=== PATIENT | male | born 1955 | race Caucasian/White ===

== ENCOUNTER 2023-03-19 06:20 | Outpatient (OUT) | payer MEDICARE, OTHER, SELFPAY ==
[2023-03-19 06:43] LABS: Basophils Absolute Auto 0.1 10^3/uL (0.0-0.1); Eosinophils Absolute Auto 0.1 10^3/uL (0.0-0.7); Hemoglobin 14.4 g/dL (14.0-18.0); Immature Granulocytes Abs Auto 0.04 10^3/uL (0.00-0.03); Immature Granulocytes Pct Auto 0.4 % (0.0-0.5); Lymphocytes Absolute Auto 3.3 10^3/uL (1.2-3.8); Lymphocytes Percent Auto 32.2 % (20.5-60.0); Mean Corpuscular HGB Conc 35.1 g/dL (29.9-35.2); Mean Corpuscular Hemoglobin 31.2 pg (25.9-34.0); Mean Corpuscular Volume 88.7 fL (80.0-94.0); Mean Platelet Volume 8.4 fL (9.5-13.5); Monocytes Absolute Auto 0.9 10^3/uL (0.3-0.8); Monocytes Percent Auto 8.7 % (1.7-12.0); Neutrophils Absolute Auto 5.7 10^3/uL (1.4-6.5); Neutrophils Percent Auto 56.7 % (43.0-75.0); Platelet Count 424 10^3/uL (150-450); Red Blood Count 4.62 10^6/uL (4.70-6.10); Red Cell Distribution Width 12.9 % (11.0-15.0); White Blood Count 10.1 10^3/uL (4.0-11.0)
[2023-03-19 07:58] LABS: Prostate Specific Antigen Scrn 1.32 ng/mL (<=4.00)
== END 2023-03-19 06:21 ==
LOC: LAB 06:26
PROVIDERS: PCP Internal Medicine; Visit Provider Internal Medicine
DX: Z79.899 Other long term (current) drug therapy (principal); Z12.5 Encounter for screening for malignant neoplasm of prostate
CPT/HCPCS: 36415; 85025; G0103

== ENCOUNTER 2023-04-01 15:42 | Outpatient (OUT) | payer MEDICARE, OTHER, SELFPAY ==
--- NOTE | 2023-04-01 | XR_ITS ---
[facility] [place] [id number] Patient Name: DANAE CRABTREE MRN: [id number] date: 1955 Sex: M Assigned Patient Location: [facility] Current Patient Location: [facility] Accession/Order Number: [id number] Exam Date: 04/01/2023 15:55 Report Date: 04/01/2023 22:52 At the request of: KEKE BUSTILLO Procedure: XR lumbar spine 6V w bending EXAM: XR lumbar spine 6V w bending HISTORY: Low Back Pain COMPARISON: None. TECHNIQUE: 6 views FINDINGS: Maintenance of the normal lumbar lordosis. Multilevel intervertebral disc space narrowing, endplate and facet arthrosis. Vertebral body heights and alignments exhibit no fracture or listhesis. Flexion and extension imaging exhibits no instability or listhesis. The sacroiliac joints are unremarkable for patient's age. Moderate to severe of the aorta IMPRESSION: Lumbar spondylosis and degenerative disc disease with no visualized acute osseous abnormality. Atherosclerosis Electronically authenticated by: NORM PEÑA Date: 04/01/2023 22:52
== END 2023-04-01 15:43 | disposition home or self-care (01) ==
LOC: RAD 15:45
PROVIDERS: PCP Internal Medicine; Visit Provider Internal Medicine
DX: M47.816 Spondylosis without myelopathy or radiculopathy, lumbar region (principal); M51.36 Other intervertebral disc degeneration, lumbar region; M54.50 Low back pain, unspecified
CPT/HCPCS: 72114

== ENCOUNTER 2023-04-21 07:06 | Outpatient (OUT) | payer MEDICARE, OTHER, SELFPAY ==
[2023-04-21 07:22] LABS: Estimated GFR (African America >60 (>=60); Estimated GFR (Non-African Ame >60 (>=60)
--- NOTE | 2023-04-21 08:16 | CA_ITS ---
[facility] Test Date: 2023-04-21 Pat Name: Alok Osorio Department: Room: - Gender: Male Junior Php Developer: Polina Romero : 1955 Requested By: KEKE BUSTILLO Order Number: [id number] Reading MD: KEKE UBSTILLO Interpretive Statements Biphasis doppler waveforms PVR waveforms with normal upstroke, amplitude and dicrotic notch Right: - no significant pressure gradient between cuffs - normal POLINA, TBI Left: - significant pressure gradient between the calf and DP cuff - abnormal POLINA - normal TBI Impression: - normal arterial evaluation of the right lower extremity without hemodynamic impairment of the right lower extremity at rest (right POLINA 1.21) - significant left outflow (tibioperoneal) arterial disease with mild hemodynamic impairment of the left lower extremity at rest (left POLINA 0.94) Electronically Signed On 04-22-2023 7:13:56 EDT by KEKE BUSTILLO
--- NOTE | 2023-04-21 08:45 | CT_ITS ---
[address] [address] Patient Name: DANAE CRABTREE MRN: [id number] date: 1955 Sex: M Assigned Patient Location: LAB Current Patient Location: LAB Accession/Order Number: [id number] Exam Date: 04/21/2023 08:35 Report Date: 04/21/2023 15:44 At the request of: KEKE BUSTILLO Procedure: CT angio abdomen pelvis EXAM: CT angio abdomen pelvis HISTORY: Aortic Atherosclerosis I70.0 COMPARISON: None. TECHNIQUE: Axial CT imaging was performed with contrast through the abdomen, and pelvis, utilizing CTA protocol. Multiplanar reformats were performed. Dose reduction techniques were achieved by using automated exposure control and/or adjustment of mA and/or kV according to patient size and/or use of iterative reconstruction technique. FINDINGS: Lung bases: Lung bases are clear. No pleural effusion. GI upper: Unremarkable. Liver: Hepatic steatosis. Normal size and contour. Gallbladder: No significant abnormality. No cholelithiasis. Biliary system: No intra or extrahepatic biliary ductal dilatation. Spleen: Normal size. Pancreas: Unremarkable. Adrenal glands: Normal adrenal glands. Kidneys/ureters: Normal contours. No hydronephrosis. No nephrolithiasis or ureterolithiasis. There are multiple bilateral renal cysts measuring up to 2.4 cm on the right and 1.8 cm on the left. Lymph Nodes: No lymphadenopathy. Small bowel: No wall thickening or dilatation. Colon: No wall thickening or dilatation. Constipation. Appendix: Appendix is identified with normal appearance. Peritoneal cavity: No free fluid or pneumoperitoneum. Lower : Prostatomegaly with coarse calcification. Correlation with PSA is recommended. Bones: No acute bony abnormality. Soft tissues: No acute finding. Additional findings: None. VASCULAR FINDINGS: CTA ABDOMEN PELVIS: Aorta: Moderate atherosclerotic disease without significant stenosis. No aneurysm or dissection. Right renal artery: No evidence of aneurysm, dissection, or occlusion. No significant stenosis. Left renal artery: No evidence of aneurysm, dissection, or occlusion. No significant stenosis. Celiac artery: No evidence of aneurysm, dissection, or occlusion. No significant stenosis. Superior mesenteric artery: No evidence of aneurysm, dissection, or occlusion. No significant stenosis. Inferior mesenteric artery: No evidence of aneurysm, dissection, or occlusion. No significant stenosis. PELVIC ARTERIES: Right: Common iliac artery: No evidence of aneurysm, dissection, or occlusion. No significant stenosis. External iliac artery: No evidence of aneurysm, dissection, or occlusion. No significant stenosis. Internal iliac artery: No evidence of aneurysm, dissection, or occlusion. No significant stenosis. Left: Common iliac artery: No evidence of aneurysm, dissection, or occlusion. No significant stenosis. Common external artery: No evidence of aneurysm, dissection, or occlusion. No significant stenosis. Internal iliac artery: No evidence of aneurysm, dissection, or occlusion. No significant stenosis. CT/CT angio abdomen pelvis IMPRESSION: 1. Moderate atherosclerotic disease without significant stenosis. No aneurysm or dissection. 2. No acute abnormality. Hepatic steatosis. Electronically authenticated by: DAMEON BRADEN Date: 04/21/2023 15:44
== END 2023-04-21 07:07 | disposition home or self-care (01) ==
LOC: LAB 07:06
PROVIDERS: PCP Internal Medicine; Visit Provider Internal Medicine
DX: I70.0 Atherosclerosis of aorta (principal); I70.213 Atherosclerosis of native arteries of extremities with intermittent claudication, bilateral legs; F17.210 Nicotine dependence, cigarettes, uncomplicated
CPT/HCPCS: 36415; 74174; 82565; 93923; Q9967

== ENCOUNTER 2023-05-13 09:42 | Outpatient (OUT) | payer MEDICARE, OTHER, SELFPAY ==
--- NOTE | 2023-05-13 09:45 | CT_ITS ---
[address] [address] Patient Name: DANAE CRABTREE MRN: [id number] date: 1955 Sex: M Assigned Patient Location: CT Current Patient Location: Accession/Order Number: [id number] Exam Date: 05/13/2023 09:56 Report Date: 05/14/2023 10:46 At the request of: KEKE BUSTILLO Procedure: CT lung screening low-dose EXAMINATION: CT lung screening low-dose HISTORY: Nicotine dependence F17.210 COMPARISON: CT chest 04/03/2022 TECHNIQUE: Axial, Coronal, and Sagittal images were created without the administration of IV contrast material. Dose reduction techniques were achieved by using automated exposure control and/or adjustment of mA and/or kV according to patient size and/or use of iterative reconstruction technique. FINDINGS: LUNGS: No visible pulmonary disease. PLEURA: No mass, effusion, or pneumothorax. VASCULATURE: No abnormality. WALESKA: No mass or pathologic adenopathy. MEDIASTINUM: No mass or pathologic adenopathy. CARDIAC: No enlargement, pericardial thickening, or significant calcification. AORTA: No aneurysm or dissection. CHEST WALL: No mass or axillary adenopathy BONES: No bone lesion or fracture. LIMITED ABDOMEN: No suspicious findings. Limited images of the upper abdomen. OTHER: Negative. CT/CT lung screening low-dose IMPRESSION: 1. Lung-RADS Category 1 Negative. No nodules and definitely benign nodules. Continue annual screening with LDCT in 12 months. Electronically authenticated by: AUTUMN EGAN Date: 05/14/2023 10:46
== END 2023-05-13 09:43 | disposition home or self-care (01) ==
LOC: CT 09:42
PROVIDERS: PCP Internal Medicine; Visit Provider Internal Medicine
DX: F17.210 Nicotine dependence, cigarettes, uncomplicated (principal)
CPT/HCPCS: 71271

== ENCOUNTER 2023-10-11 06:31 | Outpatient (OUT) | payer MEDICARE, OTHER, SELFPAY ==
[2023-10-11 07:02] LABS: Basophils Absolute Auto 0.1 10^3/uL (0.0-0.1); Basophils Percent Auto 0.9 % (0.2-2.0); Eosinophils Absolute Auto 0.1 10^3/uL (0.0-0.7); Eosinophils Percent Auto 1.3 % (0.9-7.0); Hematocrit 42.7 % (42.0-54.0); Hemoglobin 14.3 g/dL (14.0-18.0); Immature Granulocytes Abs Auto 0.03 10^3/uL (0.00-0.03); Immature Granulocytes Pct Auto 0.3 % (0.0-0.5); Lymphocytes Absolute Auto 3.9 10^3/uL (1.2-3.8); Lymphocytes Percent Auto 38.9 % (20.5-60.0); Mean Corpuscular HGB Conc 33.5 g/dL (29.9-35.2); Mean Corpuscular Hemoglobin 31.6 pg (25.9-34.0); Mean Corpuscular Volume 94.5 fL (80.0-94.0); Mean Platelet Volume 8.6 fL (9.5-13.5); Monocytes Absolute Auto 0.9 10^3/uL (0.3-0.8); Neutrophils Percent Auto 49.6 % (43.0-75.0); Platelet Count 424 10^3/uL (150-450); Red Blood Count 4.52 10^6/uL (4.70-6.10); Red Cell Distribution Width 12.9 % (11.0-15.0)
[2023-10-11 07:33] LABS: Alanine Aminotransferase 30 U/L (16-63); Anion Gap 10.9; BUN Creatinine Ratio 13.5; Calcium 8.9 mg/dL (8.5-10.1); Carbon Dioxide 27.1 mmol/L (21.0-32.0); Chloride 101 mmol/L (98-107); Chol HDL Ratio 4.6; Cholesterol 196 mg/dL (<=200); Estimated GFR (African America >60 (>=60); Estimated GFR (Non-African Ame >60 (>=60); Glucose 100 mg/dL (74-106); HDL Cholesterol 43 mg/dL (40-60); Sodium 135 mmol/L (136-145); Triglycerides 184 mg/dL (<=150); VLDL CHOLESTEROL 36.8 mg/dL
[2023-10-11 08:28] LABS: Prostate Specific Antigen Scrn 0.71 ng/mL (<=4.00)
== END 2023-10-11 06:32 | disposition home or self-care (01) ==
LOC: LAB 06:31
PROVIDERS: PCP Internal Medicine; Visit Provider Internal Medicine
DX: E78.00 Pure hypercholesterolemia, unspecified (principal); I10 Essential (primary) hypertension; Z12.5 Encounter for screening for malignant neoplasm of prostate; Z79.899 Other long term (current) drug therapy; D72.829 Elevated white blood cell count, unspecified
CPT/HCPCS: 36415; 80048; 80061; 84460; 85025; G0103

== ENCOUNTER 2024-05-28 09:56 | Outpatient (OUT) | payer MEDICARE, OTHER, SELFPAY ==
--- NOTE | 2024-05-28 10:06 | CT_ITS ---
[address] [address] Patient Name: DANAE CRABTREE MRN: [id number] date: 1955 Sex: M Assigned Patient Location: CT Current Patient Location: CT Accession/Order Number: [id number] Exam Date: 05/28/2024 10:24 Report Date: 05/28/2024 14:55 At the request of: KEKE BUSTILLO Procedure: CT lung screening low-dose EXAMINATION: CT lung screening low-dose HISTORY: Nicotine Dependence Cigarette F17.210 COMPARISON: No relevant comparison available. TECHNIQUE: Axial, Coronal, and Sagittal images were created without the administration of IV contrast material. Dose reduction techniques were achieved by using automated exposure control and/or adjustment of mA and/or kV according to patient size and/or use of iterative reconstruction technique. FINDINGS: LUNGS: Soft tissue attenuation in the trachea likely retained mucus. Mild centrilobular emphysema with an upper lobe predominance. Few scattered punctate pulmonary nodules are noted, the largest measuring 3 x 1 mm along the right major fissure axial image #82, nonspecific. No significant pulmonary nodule or mass PLEURA: No mass, effusion, or pneumothorax. VASCULATURE: No abnormality. WALESKA: No mass or pathologic adenopathy. MEDIASTINUM: No mass or pathologic adenopathy. CARDIAC: No enlargement or pericardial effusion CORONARY ARTERIES: Coronary calcifications are mild. AORTA: Mild calcific atherosclerosis. No aneurysm CHEST WALL: No mass or axillary adenopathy BONES: No bone lesion or fracture. LIMITED ABDOMEN: No suspicious findings. Limited images of the upper abdomen. OTHER: Negative. CT/CT lung screening low-dose IMPRESSION: LUNG SCREENING: Lung-RADS Category 2- Benign Appearance or Behavior. Nodules with a very low likelihood of becoming a clinically active cancer due to size or lack of growth. 2. Continue annual screening with LDCT in 12 months. Electronically authenticated by: NORM QUIGLEY Date: 05/28/2024 14:55
== END 2024-05-28 09:57 | disposition home or self-care (01) ==
LOC: CT 09:56
PROVIDERS: PCP Internal Medicine; Visit Provider Internal Medicine
DX: F17.210 Nicotine dependence, cigarettes, uncomplicated (principal)
CPT/HCPCS: 71271

== ENCOUNTER 2024-06-02 09:38 | Outpatient (OUT) | payer MEDICARE, OTHER, SELFPAY ==
--- NOTE | 2024-06-02 09:44 | XR_ITS ---
The [address] [address] Patient Name: DANAE CRABTREE MRN: [id number] date: 1955 Sex: M Assigned Patient Location: RAD Current Patient Location: RAD Accession/Order Number: [id number] Exam Date: 06/02/2024 09:49 Report Date: 06/02/2024 11:08 At the request of: KEKE BUSTILLO Procedure: XR finger RT min 2V PROCEDURE: XR finger RT min 2V HISTORY: Pain Of Right Middle Finger M79.644 COMPARISON: None. FINDINGS: BONES:Small separate corticated ossification along margin of proximal interphalangeal joint of the third digit favoring sequela of remote injury. Mild joint space narrowing of the third metacarpophalangeal joint. SOFT TISSUES:No visible soft tissue swelling. EFFUSION:None visible. OTHER: Negative. XR/XR finger RT min 2V IMPRESSION: 1. Mild degenerative changes of the third digit and sequela of remote injury. No acute bone abnormality. Electronically authenticated by: AUTUMN EGAN Date: 06/02/2024 11:08
--- OUTSIDE RECORDS SUMMARY | 2024-06-02 09:58 | XMS_ITS | CCD ---
Author Organization [facility] Care Team Providers Care Rake Operator Name Role Phone Teddy Peoples Unavailable OSMAR, DR GAINES Consulting Unavailable OSMAR, DR GAINES Primary Care Unavailable OSMAR, DR GAINES Attending Unavailable OSMAR, DR GAINES Admitting Unavailable Trever, DR Park Consulting Unavailable BOOGIE, SERENA Consulting Unavailable OSMAR, DR GAINES Primary Care Unavailable OSMAR, DR GAINES Attending Unavailable OSMAR, DR GAINES Admitting Unavailable GERMAN, KIRILL SANTIAGO Consulting Unavailable PAY, DR KHAN Attending Unavailable PAY, DR KHAN Admitting Unavailable OSMAR, DR GAINES Primary Care Unavailable DUKES, OMID Consulting Unavailable STRATTON, ESTER Consulting Unavailable OBINNA, DR DILMA Aguilar Consulting Unavailable OSMAR, DR GAINES Primary Care Unavailable OBINNA, DR DILMA Aguilar Attending Unavailable YEBOAH, DR DILMA Aguilar Admitting Unavailable NGO, [facility] Consulting Unavailable OSMAR, DR GAINES Primary Care Unavailable OBINNA, DR DILMA Aguilar Attending Unavailable OBINNA, DR DILMA Augilar Admitting Unavailable OBINNA, DR DILMA Aguilar Consulting Unavailable OSMAR, DR GAINES Primary Care Unavailable OBINNA, DR DILMA Aguilar Attending Unavailable YEBOAH, DR DILMA Aguilar Admitting Unavailable OBINNA, DR DILMA Aguilar Consulting Unavailable OSMAR, DR GAINES Primary Care Unavailable OBINNA, DR DILMA Aguilar Attending Unavailable OBINNA, DR DILMA Aguilar Admitting Unavailable OBINNA, DR DILMA Aguilar Consulting Unavailable OSMAR, DR GAINES Primary Care Unavailable YEBOAH, DR DILMA Aguilar Attending Unavailable YEBOAH, DR DILMA Aguilar Admitting Unavailable NGO, [facility] Consulting Unavailable OSMAR, DR GAINES Consulting Unavailable OSMAR, DR GAINES Primary Care Unavailable OSMAR, DR GAINES Attending Unavailable OSMAR, DR GAINES Admitting Unavailable OSMAR, DR GAINES Consulting Unavailable OSMAR, DR GAINES Primary Care Unavailable OSMAR, DR GAINES Attending Unavailable BALL, DR GAINES Admitting Unavailable West, DR Park Consulting Unavailable Osmar, Eder Unavailable Allergies Allergy Classification Reported Allergen(s) Allergy Type Date of Onset Reaction(s) Facility (10 sources) HMG-CoA reductase inhibitor Drug allergy Unknown BIlprospekt Other (5 sources) patient allergy list reviewed by nurse or physicia Propensity to adverse reactions 6 Comment:Done BIlprospekt Other Medications Current Medications Medication Drug Class(es) Dates Sig (Normalized) Sig (Original) citalopram 20 mg oral tablet (17 sources) Serotonin Reuptake Inhibitor Start: 03-29-2024 take 20 mg by mouth once daily Citalopram Active 20 MG PO Daily March 29, 2024 9:16am Start: 12-11-2023 End: 03-29-2024 take 1 tablet by mouth once daily Citalopram Discontinued 0 .ROUTE .COMPLEX 90 December 11, 2023 9:50am March 29, 2024 9:18am TAKE 1 TABLET BY MOUTH EVERY DAY Start: 12-11-2023 End: 12-11-2023 take 20 mg by mouth once daily Citalopram Discontinued 20 MG PO Daily December 11, 2023 1:00am December 11, 2023 9:50am clopidogrel 75 mg oral tablet (13 sources) [id number] Platelet Inhibitor Start: 03-29-2024 take 75 mg by mouth once daily Clopidogrel Active 75 MG PO Daily March 29, 2024 12:00am cyclobenzaprine hydrochloride 10 mg oral tablet (13 sources) Muscle Relaxant Start: 03-29-2024 take 10 mg by mouth once daily at bedtime Cyclobenzaprine Active 10 MG PO Daily at bedtime March 29, 2024 12:00am doxycycline hyclate 100 mg oral capsule (10 sources) Tetracycline-cla ss Drug Start: 10-16-2022 take 1 capsule by mouth every twelve hours Doxycycline Hyclate 100 MG 1 capsule Orally Twice a day for 7 days Oct, Active ezetimibe 10 mg oral tablet (15 sources) Dietary Cholesterol Absorption Inhibitor Start: 03-29-2024 End: 03-29-2024 take 10 mg by mouth once daily Ezetimibe Active 10 MG PO Daily March 29, 2024 9:17am hydroCHLOROthiazide 25 mg / triamterene 37.5 mg oral capsule (13 sources) Potassium-sparin g Diuretic, Thiazide Diuretic Start: 03-29-2024 take 1 capsule by mouth once daily Triamterene-Hydroch lorothiazid Active 1 CAP PO Daily March 29, 2024 12:00am Start: 07-11-2022 take 1 tablet by miah th every twenty-four hours Triamterene-HCTZ 37.5-25 MG 1 tablet in the morning Orally Once a day for 30 day(s) Jul, Active Start: 07-11-2022 take 1 tablet by miah th every twenty-four hours lisinopril 10 mg oral tablet (19 sources) Angiotensin Converting Enzyme Inhibitor Start: 04-14-2024 End: 04-14-2024 take 5 mg by mouth twice daily Lisinopril Discontinued 5 MG PO Twice daily April 14, 2024 2:38pm April 14, 2024 5:02pm Start: 03-31-2024 End: 05-04-2024 take 10 mg by mouth once daily Lisinopril Active 10 MG PO Daily May 04, 2024 6:13pm Start: 03-29-2024 End: 03-31-2024 take 5 mg by mouth once daily Lisinopril Discontinued 5 MG PO Daily March 29, 2024 9:17am March 31, 2024 11:22am OXcarbazepine 150 mg oral tablet (17 sources) Anti-epileptic Agent Start: 03-29-2024 take 75 mg by mouth once daily at bedtime Oxcarbazepine Active 75 MG PO Daily at bedtime March 29, 2024 9:17am Start: 12-03-2023 End: 03-29-2024 take 0.5 tablet by mouth once daily at bedtime Oxcarbazepine Discontinued 0 .ROUTE .COMPLEX 45 December 03, 2023 7:22pm March 29, 2024 9:18am TAKE 1/2 TABLET BY MOUTH EVERY DAY AT BEDTIME Start: 12-03-2023 End: 12-03-2023 take 0.5 tablet by mouth once daily at bedtime Oxcarbazepine Discontinued 150 MG PO Daily at bedtime December 03, 2023 1:00am December 03, 2023 7:22pm TAKE 1/2 TABLET BY MOUTH DAILY AT BEDTIME Completed/Discontinued Medications Medication Drug Class(es) Dates Sig (Normalized) Sig (Original) meclizine hydrochloride 25 mg oral tablet (5 sources) Antiemetic Start: 03-29-2024 End: 03-29-2024 take 25 mg by mouth every six hours Meclizine Discontinued 25 MG PO Every 6 hours March 29, 2024 12:00am March 29, 2024 9:10am sildenafil 100 mg oral tablet (12 sources) Phosphodiesterase 5 Inhibitor Start: 03-29-2024 End: 03-29-2024 Sildenafil Discontinued MG PO March 29, 2024 12:00am March 29, 2024 9:18am FreeTextSi tablet as needed Orally PRN ED; Note: Source Status: Taking; Provider: Osmar Gaines ( ) Sildenafil Citra te 100 MG 1 tablet as needed Orally PRN ED Active zolpidem tartrate 10 mg oral tablet (15 sources) gamma-Aminobutyric Acid-ergic Agonist Start: 09-03-2023 End: 03-15-2024 take 10 mg by mouth once daily at bedtime Zolpidem Discontinued 10 MG PO Daily at bedtime March 15, 2024 12:00am March 15, 2024 5:57pm Start: 03-17-2023 take 1 tablet by miah th once daily at bedtime Zolpidem Tartrate 10 MG TAKE 1 TABLET BY MOUTH EVERYDAY AT BEDTIME for 90 Mar, Active take 1 tablet by miah th every twenty-four hours Problems Active Problems Problem Classification Problem Date Documented Da te Episodic/Chronic Acute bronchitis (1 source) Acute bronchitis due to other specified organisms Episodic Chronic obstructive pulmonary disease and bronchiectasis (5 sources) Mucopurulent chronic bronchitis; Translations: [Mucopurulent chronic bronchitis] Chronic Conditions associated with dizziness or vertigo (5 sources) Meniere's disease; Translations: [Meniere's disease, bilateral] Chronic Diseases of white blood cells (8 sources) Elevated white blood cell count, unspecified; Translations: [Leukocytosis] Onset: 04-05-2022 Chronic Disorders of lipid metabolism (13 sources) Familial hypercholesterolemia ; Translations: [Pure hypercholesterolemia , unspecified] Onset: 06-13-2022 Chronic Essential hypertension (16 sources) Essential (primary) hypertension; Translations: [Essential hypertension] Onset: 06-13-2022 Chronic Headache; including migraine (5 sources) Migraine with aura; Translations: [Migraine with aura, not intractable, without status migrainosus] Chronic Hyperplasia of prostate (5 sources) Benign prostatic hypertrophy without outflow obstruction; Translations: [Hypertrophy (benign) of prostate without urinary obstruction and other lower urinary tract symptoms [LUTS]] Chronic Miscellaneous mental health disorders (7 sources) Primary insomnia; Translations: [Primary insomnia] 03-15-2024 Chronic Mood disorders (16 sources) Recurrent major depression in full remission; Translations: [Major depressive disorder, recurrent, in full remission] Resolved: 09-24-2022 Chronic Osteoarthritis (11 sources) Unspecified osteoarthritis, unspecified site; Translations: [Localized, primary osteoarthritis of the shoulder region] Onset: 06-13-2022 Chronic Other acquired deformities (9 sources) Spondylolysis of cervical spine; Translations: [Spondylolysis, cervical region] Episodic Other acquired deformities (1 source) Spondylolysis, cervical region Episodic Other aftercare (3 sources) 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; Translations: [OTH MACHINE BRUSHER CURRENT DRUG THERAPY] Onset: 10-02-2022 Episodic Other and ill-defined cerebrovascular disease (13 sources) Cerebral atherosclerosis; Translations: [Cerebral atherosclerosis] 03-27-2024 Chronic Other and ill-defined cerebrovascular disease (3 sources) Cerebral atherosclerosis; Translations: [Cerebral atherosclerosis] Chronic Other circulatory disease (1 source) Personal history of transient ischemic attack (TIA), and cerebral infarction without residual deficits Episodic Other circulatory disease (1 source) Other specified symptoms and signs involving the circulatory and respiratory systems Episodic Other ear and sense organ disorders (1 source) Unspecified hearing loss, right ear; Translations: [UNSPECIFIED HEARING LOSS RIGHT EAR] Onset: 08-04-2022 Chronic Other ear and sense organ disorders (1 source) Unspecified hearing loss, unspecified ear; Translations: [UNS HEARING LOSS UNSPECIFIED EAR] Onset: 06-13-2022 Chronic Other gastrointestinal disorders (6 sources) Occult blood in stools; Translations: [Other fecal abnormalities] Episodic Other nervous system disorders (1 source) Chronic pain; Translations: [Other chronic pain] Chronic Other screening for suspected conditions (not mental disorders or infectious disease) (4 sources) Encounter for screening for malignant neoplasm of prostate; Translations: [Elevated prostate specific antigen [PSA]] Onset: 10-02-2022 Episodic Otitis media and related conditions (1 source) Unspecified Eustachian tube disorder, right ear; Translations: [Dysfunction of Eustachian tube] 03-29-2024 Episodic Peripheral and visceral atherosclerosis (12 sources) 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 and due to atherosclerosis; Translations: [Atherosclerosis of [place] arteries of extremities with intermittent claudication, bilateral legs] Chronic Residual codes; unclassified (1 source) Tobacco use; Translations: [TOBACCO USE] Onset: 09-12-2022 Episodic Spondylosis; intervertebral disc disorders; other back problems (20 sources) Cervical spondylosis without myelopathy; Translations: [Spondylosis without myelopathy or radiculopathy, cervical region] Onset: 07-01-2022 Chronic Spondylosis; intervertebral disc disorders; other back problems (6 sources) Spinal stenosis, cervical region; Translations: [Cervicalgia] Onset: 08-14-2022 Episodic Substance-related disorders (20 sources) Nicotine dependence, cigarettes, uncomplicated; Translations: [Nicotine dependence] Onset: 04-03-2022 Chronic Past or Other Problems Problem Classification Problem Date Documented Da te Episodic/Chronic Calculus of urinary tract (1 source) Personal history of urinary calculi; Translations: [PERSONAL HISTORY OF URINARY CALCULI] Onset: 06-13-2022 Episodic Conditions associated with dizziness or vertigo (4 sources) Dizziness and giddiness; Translations: [DIZZINESS AND GIDDINESS] Onset: 06-11-2022 Episodic Other aftercare (1 source) transportation associate (current) use of antithrombotics/ant iplatelets; Translations: [RETIREMENT ANTITHROMBOT/ANTIPL ATLETS] Onset: 06-13-2022 Episodic Residual codes; unclassified (5 sources) Sleep disorder; Translations: [Persistent disorder of initiating or maintaining sleep] Onset: 06-01-2016 Episodic Results Test Name Value Interpretation Reference Range Facil ity CBC AUTO DIFFon 09-24-2022 BASO # 0.1 103/ul Normal 0.0-0.1 [facility] Comment on above: Performed By: #### C BC ####[facility] [address] [place] [address]DrViktoriya Sarah Basophils/100 WBC (Bld) 0.6 % Normal 0.2-2.0 [facility] Comment on above: Performed By: #### C BC ####[facility] [address] [place] [id number] Sarah EO # 0.1 103/ul Normal 0.0-0.7 [facility] Comment on above: Performed By: #### C BC ####[facility] [address] [place], [place] [address]Dr. Kinsey Tyrel Eosinophils/100 WBC (Bld) 0.5 % Critically low 0.9-7.0 [facility] Comment on above: Performed By: #### C BC ####[facility] [address] [place], [place] [address]Dr. Kinsey Sarah Erythrocyte distribution width (RBC) [Ratio] 13.1 % Normal 11.0-15.0 [facility] Comment on above: Performed By: #### C BC ####[facility] [address] [place], [place] [address]Dr. Kinsey Sarah Hematocrit (Bld) [Volume fraction] 41.8 % Critically low 42.0-54.0 [facility] Comment on above: Performed By: #### C BC ####[facility] [address] [place], [place] [address]Dr. Kinsey Sarah Hemoglobin (Bld) [Mass/Vol] 14.3 g/dL Normal 14.0-18.0 [facility] Comment on above: Performed By: #### C BC ####[facility] [address] [place], [place] [address]Dr. Kinsey Tyrel IG # 0.04 10e3/ul Critically high 0.00-0.03 [facility] Comment on above: Performed By: #### C BC ####[facility] [address] [place], [place] [address]Dr. Barbieyissel Tyrel IG % 0.3 % Normal 0.0-0.5 [facility] Comment on above: Performed By: #### C BC ####[facility] [address] [place], [place] [address]Dr. Kinsey Sarah LYMPH # 3.3 103/ul Normal 1.2-3.8 [facility] Comment on above: Performed By: #### C BC ####[facility] [address] [place], [place] [address]DrViktoriya Sarah Lymphocytes/100 WBC (Bld) 25.4 % Normal 20.5-60.0 [facility] Comment on above: Performed By: #### C BC ####[facility] [address] [place] [address]DrViktoriya Sarah MANUAL DIFF REQ NO Normal [facility] Comment on above: Performed By: #### C BC ####[facility] [address] [place] [address]DrViktoriya Sarah MCH (RBC) [Entitic mass] 30.8 pg Normal 25.9-34.0 [facility] Comment on above: Performed By: #### C BC ####[facility] [address] [place], [place] [address]DrViktoriya Sarah MCHC (RBC) [Mass/Vol] 34.2 g/dL Normal 29.9-35.2 [facility] Comment on above: Performed By: #### C BC ####[facility] [address] [place], [place] [address]DrViktoriya Sarah MCV (RBC) [Entitic vol] 89.9 fL Normal 80.0-94.0 [facility] Comment on above: Performed By: #### C BC ####[facility] [address] [place], [place] [address]DrViktoriya Sarah MONO # 1.0 103/ul Critically high 0.3-0.8 [facility] Comment on above: Performed By: #### C BC ####[facility] [address] [place], [place] [address]DrViktoriya Sarah Monocytes/100 WBC (Bld) 7.6 % Normal 1.7-12.0 [facility] Comment on above: Performed By: #### C BC ####[facility] [address] [place], [place] [address]DrViktoriya Sarah NEUT # 8.4 103/ul Critically high 1.4-6.5 [facility] Comment on above: Performed By: #### C BC ####[facility] [address] [place], [place] [address]DrViktoriya Sarah Neutrophils/100 WBC (Bld) 65.6 % Normal 43.0-75.0 [facility] Comment on above: Performed By: #### C BC ####[facility] [address] [place] [id number]. Kinsey Sarah Platelet mean volume (Bld) [Entitic vol] 8.6 fL Critically low 9.5-13.5 [facility] Comment on above: Performed By: #### C BC ####[facility] [address] [place] [id number]. Kinsey Sarah PLT 441 103/ul Normal 150-450 [facility] Comment on above: Performed By: #### C BC ####[facility] [address] [place] [id number]. Barbieyissel Tyrel RBC 4.65 106/ul Critically low 4.70-6.10 [facility] Comment on above: Performed By: #### C BC ####[facility] [address] [place] [id number] Sarah WBC 12.8 103/ul Critically high 4.0-11.0 [facility] Comment on above: Performed By: #### C BC ####[facility] [address] [place] [id number]. Kinsey Sarah LIPID PROFILEon 09-24-2022 CHOL-HDL RATIO NORM SEE BELOW Normal [facility] Comment on above: Result Comment: 3.3 - 4.4 LOW RISK 4.4 - 7.1 AVERAGE RISK 7.1 - 11.0 MODERATE RISK >11.0 HIGH RISK Performed By: #### L IPID, ALT, BMP #### [facility] [address] [place], [place] [address] Dr. Kinsey Sarah Cholesterol [Mass/Vol] 187 mg/dL Normal <=200 [facility] Comment on above: Performed By: #### L IPID, ALT, BMP #### [facility] [address] [place] [id number] [address] Kinsey Sarah Cholesterol in HDL [Mass/Vol] 38 mg/dL Critically low 40-60 [facility] Comment on above: Performed By: #### L IPID, ALT, BMP #### [facility] [address] [place] [address] [address] Kinsey Sarah Cholesterol in LDL [Mass/Vol] 113.8 mg/dL Normal [facility] Comment on above: Performed By: #### L IPID, ALT, BMP #### [facility] [address] [place] [address] [address] Kinsey Sarah Cholesterol.total/C holesterol in HDL [Mass ratio] 4.9 {ratio} Normal [facility] Comment on above: Performed By: #### L IPID, ALT, BMP #### [facility] [address] [place] [address] [address] Kinsey Sarah HDL NORMAL > or = 60 mg/dl - LO W CARDIOVASCULAR RISK <40 mg/dl - HIGH CARDIOVASCULAR RISK Normal [facility] Comment on above: Performed By: #### L IPID, ALT, BMP #### [facility] [address] [place] [address] Dr. Kinsey Sarah LDL CALC NORMAL SEE BELOW Normal [facility] Comment on above: Result Comment: <100 mg/dl OPTIMAL 100 - 129 mg/dl NEAR OR ABOVE OPTIMAL 130 - 159 mg/dl BORDERLINE HIGH 160 - 189 mg/dl HIGH >190 mg/dl VERY HIGH Performed By: #### L IPID, ALT, BMP #### [facility] [address] [place] [address] [address] Kinsey Sarah Triglyceride [Mass/Vol] 176 mg/dL Critically high <=150 [facility] Comment on above: Performed By: #### L IPID, ALT, BMP #### [facility] [address] [place] [address] Dr. Kinsey Sarah VLDL CALC 35.2 mg/dL Normal [facility] Comment on above: Performed By: #### L IPID, ALT, BMP #### [facility] [address] [place] [address] Dr. Kinsey Sarah PROF CHEM 8 (BAS METB)on Anion gap [Moles/Vol] 13.3 mmol/L Normal [facility] Comment on above: Performed By: #### L IPID, ALT, BMP #### [facility] [address] [place] [address] [address] Kinsey Sarah Calcium [Mass/Vol] 8.9 mg/dL Normal 8.5-10.1 [facility] Comment on above: Performed By: #### L IPID, ALT, BMP #### [facility] [address] [address] [address] Kinsey Sarah Chloride [Moles/Vol] 98 mmol/L Normal 98-107 [facility] Comment on above: Performed By: #### L IPID, ALT, BMP #### [facility] [address] [place] [address] [address] Kinsey Sarah CO2 [Moles/Vol] 25.5 mmol/L Normal 21.0-32.0 [facility] Comment on above: Performed By: #### L IPID, ALT, BMP #### [facility] [address] [place] [address] Dr. Kinsey Sarah Creatinine [Mass/Vol] 0.98 mg/dL Normal 0.70-1.30 [facility] Comment on above: Performed By: #### L IPID, ALT, BMP #### [facility] [address] [place] [address] Dr. Kinsey Sarah EGFR-AF ITALIAN >60 Normal >=60 [facility] Comment on above: Performed By: #### L IPID, ALT, BMP #### [facility] [address] [place] [address] Dr. Kinsey Sarah EGFR-NON AF ITALIAN >60 Normal >=60 [facility] Comment on above: Performed By: #### L IPID, ALT, BMP #### [facility] [address] [place] [address] [address] Kinsey Sarah Glucose [Mass/Vol] 105 mg/dL Normal 74-106 [facility] Comment on above: Performed By: #### L IPID, ALT, BMP #### [facility] [address] [place] [address] Dr. Kinsey Sarah Potassium [Moles/Vol] 3.8 mmol/L Normal 3.5-5.1 [facility] Comment on above: Performed By: #### L IPID, ALT, BMP #### [facility] [address] [place] [address] Dr. Kinsey Sarah Sodium [Moles/Vol] 133 mmol/L Critically low 136-145 Th e [facility] Comment on above: Performed By: #### L IPID, ALT, BMP #### [facility] [address] [place] [address] Dr. Kinsey Sarah Urea nitrogen [Mass/Vol] 16.0 mg/dL Normal 7.0-18.0 [facility] Comment on above: Performed By: #### L IPID, ALT, BMP #### [facility] [address] [place] [address] Dr. Kinsey Sarah Urea nitrogen/Creatinine [Mass ratio] 16.3 mg/mg Normal [facility] Comment on above: Performed By: #### L IPID, ALT, BMP #### [facility] [address] [place] [address] Dr. Kinsey Sarah [facility] 09-24-2022 ALT [Catalytic activity/Vol] 22 U/L Normal 16-63 [facility] Comment on above: Performed By: #### L IPID, ALT, BMP #### [facility] [address] [place] [address] Dr. Kinsey Sarah MRI CSPINE WO CONon 07-01-20 MRI [facility] WO CON EXAMINATION: MRI [facility] WO CON HISTORY: Radiculopathy due to cervical spondylosis COMPARISON: No relevant comparison available. TECHNIQUE: A variety of imaging planes and parameters were utilized for visualization of suspected pathology. FINDINGS: CRANIOCERVICAL AREA: Normal foramen magnum with no Chiari malformation. PARASPINAL AREA: Normal with no visible mass. BONES: Normal alignment with no acute fracture or spondylolisthesis. No bone edema. Moderate diffuse degenerative spondylosis CORD: Normal caliber, contour, and signal intensity. CERVICAL DISC LEVELS: C2-C3: Disc desiccation. Mild diffuse disc/osteophyte complex. No central canal or foraminal stenosis C3-C4: Disc desiccation. Moderate diffuse disc/osteophyte complex with endplate hypertrophy and facet osteoarthropathy. Narrowing of the central canal to 5.4 mm in anterior posterior dimension. Moderate to severe right and moderate left foraminal stenosis C4-C5: Disc desiccation. Moderate diffuse disc/osteophyte complex and facet osteoarthropathy narrowing the central canal to 6.3 mm in AP dimension. The right foraminal stenosis C5-C6: Moderate to severe disc space narrowing and disc desiccation. Moderate to severe disc/osteophyte complex and ligamentum flavum hypertrophy and facet osteoarthropathy. Narrowing of the central canal to 6 mm in AP dimension. Severe bilateral foraminal stenosis C6-C7: Moderate to severe disc space narrowing and desiccation. Moderate diffuse disc/osteophyte complex. Narrowing of the central canal to 7 mm in AP dimension. Mild right and moderate left foraminal stenosis C7-T1:. Mild disc desiccation. No disc bulge or herniation or central or foraminal stenosis IMPRESSION: Moderate to severe diffuse degenerative changes with central and foraminal stenosis at multiple levels as detail above. Surgical consultation recommended Electronically authenticated by: NORM QUIGLEY Date: 2022-07-01 19:35 Normal [facility] XR FOREIGN BODY EYEon 2021 XR FOREIGN BODY EYE EXAM: XR FOREIGN BOD Y EYE HISTORY: Screening for MRI. COMPARISON: None. TECHNIQUE: Frontal and lateral views were obtained. FINDINGS: No metallic foreign bodies are seen in or near the orbits. There are multiple foci of metallic dental amalgam. No suspicious or destructive bone lesions are seen. The visualized sinuses are grossly clear. IMPRESSION: The patient is cleared for MRI. Electronically authenticated by: SERENA HYMAN Date: 2022-07-01 10:39 Normal [facility] CBC AUTO DIFFon 06-11-2022 BASO # 0.1 103/ul Normal 0.0-0.1 [facility] Comment on above: Performed By: #### C BC #### [facility] [address], [place] [address] Dr. Kinsey Sarah Basophils/100 WBC (Bld) 0.5 % Normal 0.2-2.0 [facility] Comment on above: Performed By: #### C BC #### [facility] [address], [place] [address] Dr. Kinsey Sarah EO # 0.1 103/ul Normal 0.0-0.7 [facility] Comment on above: Performed By: #### C BC #### [facility] [address] [place] [address] Dr. Kinsey Sarah Eosinophils/100 WBC (Bld) 0.4 % Critically low 0.9-7.0 [facility] Comment on above: Performed By: #### C BC #### [facility] [address] [place] [address] Dr. Kinsey Sarah Erythrocyte distribution width (RBC) [Ratio] 13.7 % Normal 11.0-15.0 [facility] Comment on above: Performed By: #### C BC #### [facility] [address] [place] [address] Dr. Kinsey Sarah Hematocrit (Bld) [Volume fraction] 40.4 % Critically low 42.0-54.0 [facility] Comment on above: Performed By: #### C BC #### [facility] [address] [place] [address] Dr. Kinsey Sarah Hemoglobin (Bld) [Mass/Vol] 14.0 g/dL Normal 14.0-18.0 [facility] Comment on above: Performed By: #### C BC #### [facility] [address] [place] [address] Dr. Kinsey Sarah IG # 0.08 10e3/ul Critically high 0.00-0.03 [facility] Comment on above: Performed By: #### C BC #### [facility] [address] [place] [address] Dr. Kinsey Sarah IG % 0.5 % Normal 0.0-0.5 [facility] Comment on above: Performed By: #### C BC #### [facility] [address] [place] [address] Dr. Kinsey Sarah LYMPH # 2.6 103/ul Normal 1.2-3.8 [facility] Comment on above: Performed By: #### C BC #### [facility] [address] [place] [address] Dr. Kinsey Sarah Lymphocytes/100 WBC (Bld) 14.7 % Critically low 20.5-60.0 [facility] Comment on above: Performed By: #### C BC #### [facility] [address] [place] [address] Dr. Kinsey Sarah MANUAL DIFF REQ NO Normal [facility] Comment on above: Performed By: #### C BC #### [facility] [address] [place] [address] Dr. Kinsey Sarah MCH (RBC) [Entitic mass] 30.5 pg Normal 25.9-34.0 [facility] Comment on above: Performed By: #### C BC #### [facility] [address] [place] [address] Dr. Kinsey Sarah MCHC (RBC) [Mass/Vol] 34.7 g/dL Normal 29.9-35.2 [facility] Comment on above: Performed By: #### C BC #### [facility] [address] [place] [address] Dr. Kinsey Sarah MCV (RBC) [Entitic vol] 88.0 fL Normal 80.0-94.0 [facility] Comment on above: Performed By: #### C BC #### [facility] [address] [place] [address] Dr. Kinsey Sarah MONO # 0.9 103/ul Critically high 0.3-0.8 [facility] Comment on above: Performed By: #### C BC #### [facility] [address] [place] [address] Dr. Kinsey Sarah Monocytes/100 WBC (Bld) 5.2 % Normal 1.7-12.0 [facility] Comment on above: Performed By: #### C BC #### [facility] [address] [place] [address] Dr. Kinsey Sarah NEUT # 13.7 103/ul Critically high 1.4-6.5 [facility] Comment on above: Performed By: #### C BC #### [facility] [address] [place] [address] Dr. Kinsey Sarah Neutrophils/100 WBC (Bld) 78.7 % Critically high 43.0-75.0 [facility] Comment on above: Performed By: #### C BC #### [facility] [address] [place], [place] [address] Dr. Kinsey Sarah Platelet mean volume (Bld) [Entitic vol] 8.6 fL Critically low 9.5-13.5 [facility] Comment on above: Performed By: #### C BC #### [facility] [address] [place], [place] [address] Dr. Kinsey Sarah PLT 444 103/ul Normal 150-450 [facility] Comment on above: Performed By: #### C BC #### [facility] [address] [place], [place] [address] Dr. Kinsey Sarah RBC 4.59 106/ul Critically low 4.70-6.10 [facility] Comment on above: Performed By: #### C BC #### [facility] [address] [place], [place] [address] Dr. Kinsey Sarah WBC 17.4 103/ul Critically high 4.0-11.0 [facility] Comment on above: Performed By: #### C BC #### [facility] [address] [place], [place] [address] HEAD WO CONon 06-11-2022 CT HEAD WO CON NONCONTRAST CT SCAN OF THE HEAD CT HEAD WO CON HISTORY:: Headache and dizziness in a 66-year-old male. TECHNIQUE: Multiple axial images are taken from the level the vertex down to the base of the skull without the use of IV contrast. Images were then reconstructed in the sagittal and coronal planes. This exam was performed according to our departmental dose-optimization program which includes use of Automated Exposure Control, adjustment of the mA and/or kV according to patient size and/or use of iterative reconstruction technique. COMPARISON: None. FINDINGS: Brain Parenchyma: Encephalomalacia is demonstrated near the right sylvian fissure, and the right frontal parietal lobe. There is global, diffuse atrophy with periventricular decreased white matter attenuation. No intracranial mass. No intracranial hemorrhage. Posterior fossa: Normal. Midline shift: None Extra-axial fluid collection: None Ventricles: Normal. Mastoid air cells: Normal. Sinuses: Normal. Cranium: No depressed skull fracture. Soft tissues: Normal. Orbits: Normal. IMPRESSION: 1. Chronic small vessel ischemic change. 2. Evidence of old stroke in the right frontoparietal lobe 3. Otherwise, no CT evidence for acute pathology. 4. In the setting of hyperacute stroke, findings may not be readily visualized on a noncontrast CT. Please correlate clinically. If there is any clinical concern for hyperacute stroke, MRI with diffusion-weighted imaging would help better delineate. Electronically authenticated by: ESTER STRATTON Date: 2022-06-11 17:33 Normal [facility] CTA NECK WO W CONon 06-11-20 22 CTA NECK WO W CON EXAMINATION: CTA HEA D WO W CON, CTA NECK WO W CON HISTORY: Dizziness. COMPARISON: None. TECHNIQUE: Following IV administration of iodinated contrast, axial CT scans of the head and neck were obtained. MPR and MIP images images were obtained. In addition, 3-D reconstruction images were generated. Carotid stenosis is based on NASCET criteria. Dose reduction techniques were achieved by using automated exposure control and/or adjustment of mA and/or kV according to patient size and/or use of iterative reconstruction technique. FINDINGS: CTA OF THE HEAD: No major branch occlusion or significant intracranial stenosis. No aneurysm. Dural venous sinuses are patent. CTA OF THE NECK: No abnormal soft tissue mass in the neck. The visualized lungs are clear. Osseous structures are intact. Aortic arch shows no aneurysm. The great vessels of the aortic arch show no significant stenosis. Moderate stenosis of the dominant left vertebral artery origin. The nondominant right vertebral artery shows no significant stenosis. Common carotids and internal carotids show no significant stenosis or dissection. IMPRESSION: No large vessel occlusion or significant intracranial stenosis. Dural venous sinuses are patent. Moderate stenosis of the origin of the dominant left vertebral artery. The nondominant right vertebral artery shows no significant stenosis. Common carotids and internal carotids show no significant stenosis or dissection. Electronically authenticated by: OMID DUKES Date: 2022-06-11 19:31 Normal [facility] PROF CHEM 8 (BAS METB)on Anion gap [Moles/Vol] 12.2 mmol/L Normal [facility] Comment on above: Performed By: #### B MP, HSTROPN ####[facility] [address] [place] [address]Dr. Yilan Sarah Calcium [Mass/Vol] 9.1 mg/dL Normal 8.5-10.1 [facility] Comment on above: Performed By: #### B WALLACE, HSTROPN ####[facility] [address] [place] [address]Dr. Kinsey Sarah Chloride [Moles/Vol] 99 mmol/L Normal 98-107 [facility] Comment on above: Performed By: #### Tien GONSALEZ, HSTROPN ####[facility] [address] [place] [address]Dr. Kinsey Sarah CO2 [Moles/Vol] 25.7 mmol/L Normal 21.0-32.0 [facility] Comment on above: Performed By: #### Tien GONSALEZ, HSTROPN ####[facility] [address] [place], [place] [address]Dr. Kinsey Sarah Creatinine [Mass/Vol] 0.95 mg/dL Normal 0.70-1.30 [facility] Comment on above: Performed By: #### Tien GONSALEZ, HSTROPN ####[facility] [address] [place], [place] [address]Dr. Kinsey Sarah EGFR-AF ITALIAN >60 Normal >=60 [facility] Comment on above: Performed By: #### Tien GONSALEZ, HSTROPN ####[facility] [address] [place], [place] [address]Dr. Kinsey Sarah EGFR-NON AF ITALIAN >60 Normal >=60 [facility] Comment on above: Performed By: #### Tien GONSALEZ, HSTROPN ####[facility] [address] [place] [address]Dr. Kinsey Sarah Glucose [Mass/Vol] 106 mg/dL Normal 74-106 [facility] Comment on above: Performed By: #### Tien GONSALEZ, HSTROPN ####[facility] [address] [place], [place] [address]Dr. Kinsey Sarah Potassium [Moles/Vol] 3.9 mmol/L Normal 3.5-5.1 [facility] Comment on above: Performed By: #### Tien GONSALEZ, HSTROPN ####[facility] [address] [place], [place] [address]Vu. Kinsey Sarah Sodium [Moles/Vol] 133 mmol/L Critically low 136-145 Th [facility] Comment on above: Performed By: #### B WALLACE, HSTROPN ####[facility] [address] [place], [place] [address]He. Kinsey Sarah Urea nitrogen [Mass/Vol] 17.0 mg/dL Normal 7.0-18.0 [facility] Comment on above: Performed By: #### B MP, HSTROPN ####[facility] [address] [place] [id number]. Kinsey Sarah Urea nitrogen/Creatinine [Mass ratio] 17.9 mg/mg Normal [facility] Comment on above: Performed By: #### B WALLACE, HSTROPN ####[facility] [address] [place] [address]Dr. Kinsey Sarah TROPONIN, HIGH SENSITIVITYon 06-11-2022 HSTROP 3.2 pg/mL Critically low 4.0-76.1 [facility] Comment on above: Result Comment: CUT- OFF POINTS HAVE BEEN ESTABLISHED BASED ON THE FOURTH UNIVERSAL DEFINITIONS OF MYOCARDIAL INFARCTION. THE UPPER REFERENCE LIMIT (URL) OF TROPONIN, DEFINED THE 99TH PERCENTILE OF cTnI DISTRIBUTION IN A REFERENCE POPULATION, HAS BEEN CONFIRMED THE DECISION THRESHOLD FOR AL DIAGNOSIS. Performed By: #### B WALLACE, HSTROPN ####[facility] [address] [place] [id number]. Kinsey Sarah CT LUNG CANCER SCREENINGon 0 04-04-2022 CT LUNG CANCER SCREENING EXAMINATION: CT LUNG CANCER SCREENING HISTORY: Tobacco dependence caused by cigarettes COMPARISON: No relevant comparison available. TECHNIQUE: Axial, Coronal, and Sagittal images were created without the administration of IV contrast material. Dose reduction techniques were achieved by using automated exposure control and/or adjustment of mA and/or kV according to patient size and/or use of iterative reconstruction technique. FINDINGS: LUNGS: A few scattered punctate pulmonary nodules the largest measures 3 mm in the left lower lobe axial image 120. Mild centrilobular emphysema most significant in the right upper lobe. PLEURA: No mass, effusion, or pneumothorax. VASCULATURE: No abnormality. WALESKA: No mass or pathologic adenopathy. MEDIASTINUM: No mass or pathologic adenopathy. CARDIAC: No enlargement or pericardial effusion. Mild coronary atherosclerosis AORTA: No aortic aneurysm. Mild atherosclerosis CHEST WALL: No mass or axillary adenopathy BONES: No bone lesion or fracture. LIMITED ABDOMEN: No suspicious findings. Limited images of the upper abdomen. OTHER: Negative. IMPRESSION: LUNG SCREENING: Lung-RADS Category 1 Negative. No nodules and definitely benign nodules. Continue annual screening with LDCT in 12 months. Electronically authenticated by: NORM QUIGLEY Date: 2022-04-04 07:46 Normal [facility] CBC AUTO DIFFon 04-03-2022 BASO # 0.1 103/ul Normal 0.0-0.1 [facility] Comment on above: Performed By: #### C BC ####[facility] [address] [place], [place] [address]Dr. Kinsey Sarah Basophils/100 WBC (Bld) 0.9 % Normal 0.2-2.0 [facility] Comment on above: Performed By: #### C BC ####[facility] [address] [place], [place] [address]Dr. Barbieyissel Sarah EO # 0.1 103/ul Normal 0.0-0.7 [facility] Comment on above: Performed By: #### C BC ####[facility] [address] [place], [place] [address]Dr. Kinsey Sarah Eosinophils/100 WBC (Bld) 0.9 % Normal 0.9-7.0 [facility] Comment on above: Performed By: #### C BC ####[facility] [address] [place] [address]Dr. Kinsey Sarah Erythrocyte distribution width (RBC) [Ratio] 13.4 % Normal 11.0-15.0 [facility] Comment on above: Performed By: #### C BC ####[facility] [address] [place], [place] [address]Dr. Kinsey Sarah Hematocrit (Bld) [Volume fraction] 43.3 % Normal 42.0-54.0 [facility] Comment on above: Performed By: #### C BC ####[facility] [address] [place] [id number]. Kinsey Sarah Hemoglobin (Bld) [Mass/Vol] 14.6 g/dL Normal 14.0-18.0 [facility] Comment on above: Performed By: #### C BC ####[facility] [address] [place] [id number]. Kinsey Sarah IG # 0.02 10e3/ul Normal 0.00-0.03 [facility] Comment on above: Performed By: #### C BC ####[facility] [address] [place], [place] [address]Dr. Kinsey Sarah IG % 0.2 % Normal 0.0-0.5 [facility] Comment on above: Performed By: #### C BC ####[facility] [address] [place], [place] [address]Dr. Kinsey Sarah LYMPH # 3.2 103/ul Normal 1.2-3.8 [facility] Comment on above: Performed By: #### C BC ####[facility] [address] [place], [place] [address]Dr. Kinsey Sarah Lymphocytes/100 WBC (Bld) 30.6 % Normal 20.5-60.0 [facility] Comment on above: Performed By: #### C BC ####[facility] [address] [place], [place] [address]Dr. Kinsey Sarah MANUAL DIFF REQ NO Normal [facility] Comment on above: Performed By: #### C BC ####[facility] [address] [place], [place] [address]Dr. Kinsey Sarah MCH (RBC) [Entitic mass] 29.8 pg Normal 25.9-34.0 [facility] Comment on above: Performed By: #### C BC ####[facility] [address] [place], [place] [address]Dr. Kinsey Sarah MCHC (RBC) [Mass/Vol] 33.7 g/dL Normal 29.9-35.2 [facility] Comment on above: Performed By: #### C BC ####[facility] [address] [place] [id number]. Kinsey Sarah MCV (RBC) [Entitic vol] 88.4 fL Normal 80.0-94.0 [facility] Comment on above: Performed By: #### C BC ####[facility] [address] [place] [address]Dr. Kinsey Sarah MONO # 0.9 103/ul Critically high 0.3-0.8 [facility] Comment on above: Performed By: #### C BC ####[facility] [address] [place] [address]Dr. Kinsey Sarah Monocytes/100 WBC (Bld) 8.2 % Normal 1.7-12.0 [facility] Comment on above: Performed By: #### C BC ####[facility] [address] [place] [address]Dr. Kinsey Sarah NEUT # 6.2 103/ul Normal 1.4-6.5 [facility] Comment on above: Performed By: #### C BC ####[facility] [address] [place] [address]Dr. Kinsey Sarah Neutrophils/100 WBC (Bld) 59.2 % Normal 43.0-75.0 [facility] Comment on above: Performed By: #### C BC ####[facility] [address] [place] [id number]. Kinsey Sarah Platelet mean volume (Bld) [Entitic vol] 8.4 fL Critically low 9.5-13.5 [facility] Comment on above: Performed By: #### C BC ####[facility] [address] [place] [address]Dr. Kinsey Sarah PLT 476 103/ul Critically high 150-450 [facility] Comment on above: Performed By: #### C BC ####[facility] [address] [place] [address]Dr. Kinsey Sarah RBC 4.90 106/ul Normal 4.70-6.10 [facility] Comment on above: Performed By: #### C BC ####[facility] [address] [place], [place] [address]Ir. Kinsey Sarah WBC 10.4 103/ul Normal 4.0-11.0 [facility] Comment on above: Performed By: #### C BC ####[facility] [address] [place], [place] [address]Bt. Kinsey Sarah Vital Signs Date Time Vital Sign Value Performing Clinician Facility 05-28-2024 13:47-0400 Body height 177.8 cm [facility] 05-28-2024 13:47-0400 Body mass index (BMI) [Ratio] 30.5 kg/m2 [facility] 05-28-2024 13:47-0400 Body weight 96.61 kg [facility] 05-28-2024 13:47-0400 Diastolic blood pressure 71 mm[Hg] [facility] 05-28-2024 13:47-0400 Heart rate 96 /min [facility] 05-28-2024 13:47-0400 Systolic blood pressure 149 mm[Hg] [facility] 03-29-2024 09:11-0400 Body height 177.8 cm [facility] 03-29-2024 09:11-0400 Body mass index (BMI) [Ratio] 30.2 kg/m2 [facility] 03-29-2024 09:11-0400 Body weight 95.7 kg [facility] 03-29-2024 09:11-0400 Diastolic blood pressure 89 mm[Hg] [facility] 03-29-2024 09:11-0400 Heart rate 80 /min [facility] 03-29-2024 09:11-0400 Respiratory rate 12 /min [facility] 03-29-2024 09:11-0400 Systolic blood pressure 181 mm[Hg] [facility] 09-26-2023 09:30-0500 Body height 177.8 cm Eder Prasad Other [facility] Other 09-26-2023 09:30-0500 Body mass index (BMI) [Ratio] 30.27 kg/m2 Eder Ball Other [facility] Other 09-26-2023 09:30-0500 Body weight 95.71 kg Eder Prasad Other [facility] Other 09-26-2023 09:30-0500 Diastolic blood pressure 88 mm[Hg] Eder Prasad Other [facility] Other 09-26-2023 09:30-0500 Respiratory rate 12 /min Eder Prasad Other [facility] Other 09-26-2023 09:30-0500 Systolic blood pressure 135 mm[Hg] Eder Prasad Other [facility] Other 07-11-2022 10:20-0400 Body height 177.8 cm Teddy Peoples Other [facility] Other 07-11-2022 10:20-0400 Body mass index (BMI) [Ratio] 28.69 kg/m2 Teddy Peoples Other [facility] Other 07-11-2022 10:20-0400 Body weight 90.72 kg Teddy Peoples Other [facility] Other Encounters Encounter Date Encounter Type Care Provider Facility Start: 05-28-2024 End: 05-28-[address] [facility] Work Phone: Start: 05-28-2024 End: 05-28-2024 Patient encounter procedure [facility] Work Phone: Start: 03-29-2024 Telephone encounter Eder Prasad [facility] Start: 03-29-2024 End: 03-29-[address] [facility] Work Phone: Start: 03-29-2024 End: 03-29-2024 Patient encounter procedure [facility] Work Phone: Start: 10-13-2023 End: 10-13-2023 ambulatory Eder Prasad Other [facility] Other Start: 10-13-2023 Telephone encounter Eder Prasad [facility] Start: 09-26-2023 End: 09-26-2023 ambulatory Eder Prasad Other [facility] Other Start: 09-26-2023 Patient encounter procedure Eder Prasad [facility] Start: 06-13-2023 End: 06-13-2023 ambulatory Eder Prasad Other [facility] Other Start: 06-13-2023 Telephone encounter Eder Prasad FP [facility] Start: 05-27-2023 End: 05-27-2023 ambulatory Eder Parsad Other [facility] Other Start: 05-27-2023 Telephone encounter Eder Prasad [facility] Start: 04-03-2023 End: 04-03-2023 ambulatory Eder Prasad Other [facility] Other Start: 04-03-2023 Telephone encounter Eder Prasad [facility] Start: 03-27-2023 End: 03-27-2023 ambulatory Eder Prasad Other [facility] Other Start: 03-27-2023 Telephone encounter Eder Prasad [facility] Start: 03-11-2023 End: 03-11-2023 ambulatory Eder Prasad Other [facility] Other Start: 03-11-2023 Telephone encounter Eder Prasad [facility] Start: 10-22-2022 End: 10-22-2022 ambulatory Eder Prasad Other [facility] Other Start: 10-22-2022 Telephone encounter Eder Prasad [facility] Start: 10-16-2022 End: 10-16-2022 ambulatory Eder Prasad Other [facility] Other Start: 10-16-2022 Office outpatient vi sit 15 minutes Eder Prasad [facility] Start: 10-03-2022 End: 10-04-2022 ambulatory [facility] Facility:[facility] Start: 09-24-2022 End: 09-25-[address] EDER PRASAD Facility:[facility] Start: 09-17-2022 End: 09-17-[address] DILMA YEBOAH Facility:[facility] Start: 08-27-2022 End: 08-28-[address] DILMA YEBOAH Facility:[facility] Start: 08-13-2022 End: 08-13-[address] DILMA YEBOAH Facility:[facility] Start: 07-30-2022 End: 07-31-[address] DILMA YEBOAH Facility:[facility] Start: 07-11-2022 End: 07-11-2022 ambulatory Teddy Peoples Other [facility] Other Start: 07-11-2022 Office outpatient ne w 30 minutes Teddy Peoples [facility] Start: 07-01-2022 End: 07-02-[address] EDER PRASAD Facility:[facility] Start: 06-11-2022 End: 06-11-2022 ambulatory KIRILL PORTER Facility:[facility] Start: 04-26-2022 End: 06-13-[address] EDER PRASAD Facility:[facility] Start: 04-03-2022 End: 04-04-[address] EDER PRAASD Facility:[facility] Procedures Date Procedure Procedure Detail Performing Clinician Start: 09-24-[address] ITA PRASAD Comment on above: Performed By: #### P [facility] ####[place] [id number] Sarah Immunizations Immunization Date Immunization Notes Care Provider Fa cili 07-02-2022 influenza virus vaccine, split virus (incl. purified surface antigen) Eder Prasad Other [facility] Other 07-02-2022 influenza virus vaccine, unspecified formulation [facility] 07-04-2021 influenza virus vaccine, split virus (incl. purified surface antigen) Eder Prasad Other [facility] Other 07-04-2021 influenza virus vaccine, unspecified formulation [facility] 08-02-2019 influenza virus vaccine, split virus (incl. purified surface antigen) Eder Prasad Other [facility] Other 08-02-2019 influenza virus vaccine, unspecified formulation [facility] 07-15-2018 influenza virus vaccine, split virus (incl. purified surface antigen) Eder Prasad Other [facility] Other 07-15-2018 influenza virus vaccine, unspecified formulation [facility] 07-25-2017 tetanus and diphther ia toxoids, adsorbed, preservative free, for adult use (5 Lf of tetanus toxoid and 2 Lf of diphtheria toxoid) Eder Osmar Other [facility] 07-21-2015 tetanus and diphther ia toxoids, adsorbed, preservative free, for adult use (5 Lf of tetanus toxoid and 2 Lf of diphtheria toxoid) Eder Osmar Other [facility] Payers Date Payer Category Payer Medicare [id number] 2.1 [id number] 1959 Unknown [id number] 2.16.8 [id number] 1955 Unknown [id number] 2.16.84 [id number] 1955 Unknown [id number] 2.16.84 0.1.692973.3.579.2.593 1956 Unknown [id number] 2.16.84 0.1.143271.3.579.2.593 1956 Unknown [id number] 2.16.84 0.1.520091.3.579.2.593 1956 Unknown [id number] 2.16.84 0.1.370193.3.579.2.593 1956 Unknown [id number] 2.16.84 0.1.931531.3.579.2.593 1956 Unknown [id number] 2.16.84 0.1.043915.3.579.2.593 1956 Unknown [id number] 2.16.84 0.1.645774.3.579.2.593 1956 Unknown [id number] 2.16.84 0.1.462391.3.579.2.593 1955 Unknown [id number] 2.16.84 0.1.486863.3.579.2.593 Social History Date Type Detail Facility Sex Assigned At [facility] [place] Other Start: 1955 Sex Assigned At Male F [facility] Start: 05-28-[address] [facility] Clinical Notes 07-11-2022 to 09-26-2023 Note Date & Type Note Facility 09-26-2023 Evaluation note Encounter Date Diagnosis Assessment Notes Sep, Medicare annual wellness visit, subsequent (ICD-10 - Z00.00) Personalized health advice was given to the beneficiary including a written plan for screenings discussed and provided. Advanced care planning reviewed and/or information given as requested. Additional counseling was provided here today in regards to, [ ]. The above visit was performed by [ ], under direct supervision of [ ]. Document reviewed and amended by provider signed below. Sep, Atherosclerotic cerebrovascular disease (ICD-10 - I67.2) Healthy diet, exercise and continue secondary prevention. Instructed on stroke symptoms to recongnize, ER for any suspicious symptoms. Sep, Primary hypertension (ICD-10 - I10) This patient is instructed to consume a healthy, low-fat, low-salt diet. They are also encouraged to continue exercise to achieve/maintain a normal BMI. Sep, Hypercholesteremia (ICD-10 - E78.00) Instructed on diet and exercise with continued statin therapy.Discussed the beneficial effects of lowering cholesterol in reducing the risk for cerebrovascular and cardiovascular disease. Sep, Cigarette nicotine dependence without complication (ICD-10 - F17.210) Marti LDCT: - no suspicious nodules 05/2023 Instructed on smoking cessation. Sep, Recurrent major depressive disorder, in full remission (ICD-10 - F33.42) Healthy diet and exercise. Continue medical therapy. Avoid aburpt w/d from medication Sep, Right carotid bruit (ICD-10 - R09.89) Carotid US: < 50% - 2018, CTA neck: <50% - 05/2022 Serial carotid US w/o hemodynamic significant stenosis Sep, Leukocytosis, unspecified type (ICD-10 - D72.829) Monitor for now No s/s intercurrent infection No use of steroids Sep, Cervical spondylolysis (ICD-10 - M43.02) ROM exercises, ice/heat and Tylenol. Completed PT and pain injections w/o benefit Sep, Screening PSA (prostate specific antigen) (ICD-10 - Z12.5) Sep, High risk medication use (ICD-10 - Z79.899) [facility] Other 06-22-2023 Evaluation note* Encounter Date Diagnosis Assessment Notes Treatment Notes Treatment Clinical Notes Mar, Elevated PSA (ICD-10 - R97.20) [facility] Other 01-11-2023 Evaluation note* Encounter Date Diagnosis Assessment Notes Treatment Notes Treatment Clinical Notes Oct, Acute bronchitis due to other specified organisms (ICD-10 - J20.8) Instructed to use Robitussin or Mucinex for cough, saline or Flonase NS for congestion, Tylenol for pain and fever. Oct, Cigarette nicotine dependence without complication (ICD-10 - F17.210) This patient has been encouraged to quit tobacco use immediately. They are aware of the hazards associated with tobacco use, including but not limited to respiratory infections, vascular disease and cancers. Oct, Hx of cerebral infarction (ICD-10 - Z86.73) Continue antiplatelet therapy, encouraged to d/c tobacco use. [facility] Other 12-29-2022 NoteCONSULTATION CONSULTATION DATE: 10/03/2022 HISTORY OF PRESENT ILLNESS: This is a 67-year-old gentleman, accompanied by his to the clinic, status post #2 bilateral MBB of C6, C7 and C8, T1. The patient states that during the procedure he was experiencing an increased amount of pain. By the next day, he felt he had temporary, 80% relief for one day. Today, he states the past two days have been very achy, tight and painful. At rest, his pain is 2/10; with activity, it will increase to 6/10. He does use Icy Hot and ice occasionally. He states the right side of his neck is tight with a deep ache. He denies any radicular pain. Medications include Celexa, Tylenol, Flexeril 10 mg q.h.s., Ambien and Plavix. Patient's REVIEW OF SYSTEMS / PAST MEDICAL HISTORY / ALLERGIES and IMAGES have been reviewed and noted in the chart. PHYSICAL EXAM: VITAL SIGNS: Blood pressure is 134/68. Heart rate is 101. Temperature is 97.7. He is 5'11 , weighs 94 kg. GENERAL APPEARANCE: Pleasant, appropriate, in no acute distress. FOCUSED EXAM - NECK: Range of motion is guarded in lateral rotation and flexion/extension. Right cervical trapezius muscle is spasmodic and compression reproduces pain symptomatology. Compression along the cervical facets of C6, C7 and C8, T1 reproduces spinal axial pain, but does not radiate below the shoulders. MUSCULOSKELETAL: Bilateral upper extremities with motor 5/5. NEUROLOGICALLY: Patient is cognitively intact. Brachioradialis +2 bilaterally. Radicular sensory is intact. DIAGNOSIS: Cervical spondylosis, cervical degenerative disc disease, cervicalgia. PLAN: At this time, the patient prefers to hold off on the radiofrequency ablations. He feels he would like this pain that he currently has to settle down. I did recommend discontinuing the ice application and to use heat in addition to his Icy Hot and Voltaren gel. Stretches were discussed and demonstrated. Patient states he would like to call the office mid October if he is ready, at that time, to move forward with the ablations. I did discuss to do a trial of Flexeril 20 mg at h.s. to see if he gets increased relief.[facility] [id number] History general Narrative - Reported* Type Description Date Medical History stroke Medical History vertigo Medical History headache Medical History Major depressive dis order, recurrent, in full remission (resolved 09/24/2022) Surgical History hand surgery Hospitalization History SEE SURGICAL HX [facility] Other 11-22-2022 NoteCONSULTATION CONSULTATION DATE: 08/27/2022 CHIEF COMPLAINT: Right neck and base of his cervicothoracic spine. HISTORY OF PRESENT ILLNESS: This is a 67-year-old gentleman who is known to the Pain Clinic. The patient had a diagnostic cervical medial branch block at the level of C6-C7 and C8-T1 to block the T1-T2 facet. The patient states he had improvement on the right side, which was the main problematic area. The left side, he had some increased pain; however, this was transient. Post procedurally, the patient had improvement of his pain; however, the pain is gradually returning. He states, currently, he is approximately 50%. Rotating his neck, standing, walking aggravate the pain. Heat mitigates the patient's pain symptomatology. Bending aggravates the pain. The barometric pressure changes also aggravate the pain. The patient is unable to take NSAIDs, secondary to the fact that he is on Plavix. The patient also takes cyclobenzaprine 10 mg h.s., Tylenol Arthritis. The patient's PAST MEDICAL HISTORY / SURGICAL HISTORY / REVIEW OF SYSTEMS are noted on the chart, along with the MEDICATION LIST / ALLERGIES and the RADIOLOGICAL IMAGES. PHYSICAL EXAM: Upon physical examination, this is a pleasant, cooperative gentleman, who appears to be significantly more comfortable than the last visit. VITAL SIGNS: Stable at 111/68, with a heart rate of 77. At a height of 5'11 , the patient weighs 91 kg. FOCUSED EVALUATION: Significant decrease in the trapezius spasming is noted. The patient's range of motion in the cervical spine is more fluid. The patient is not guarded. The patient has significant jump response along the spondylitic area above the site where we had performed the medial branch block. This is approximately at the level of C3-C4. EXTREMITIES: No clubbing or cyanosis. MUSCULOSKELETAL: Intact in the upper extremity. NEUROLOGICALLY: The patient is intact. PSYCHIATRICALLY: Affect is appropriate. IMPRESSION: Cervicalgia, cervical spondylosis, chronic tobacco usage. PLAN: Significant amount of time was spent educating the patient and expectations with regards to the pathology. The patient was made to understand that the patient has pathology above the sites we are also working. This is also more noticeable to the patient given the fact that the inferior cervicothoracic region has significantly improved. The patient understands and would like to proceed. We shall look to request authorization to stop the Plavix to proceed further. The patient will be scheduled for #2 cervical medial branch block at the level of C6-7 and C8-T1 bilaterally.[facility] [id number] NoteCONSULTATION CONSULTATION DATE: 07/30/2022 CHIEF COMPLAINT: Cervical pain. HISTORY OF PRESENT ILLNESS: This is a very pleasant, 67-year-old gentleman who is accompanied by his . The patient is referred to us by Dr. Sebastian Prasad. The patient has had chronic cervical pain along his cervicothoracic junction bilaterally. It is a sharp pain. The patient has attended physical therapy over the last month. The patient has had massotherapy. Twisting his neck, a.m. , bending and change in weather aggravates the patient's pain. Sleep disturbances are noted by the patient, for which he takes Ambien. Laying down mitigates the pain as does sitting and reclining. The patient is unable to take NSAIDs due to the fact that he has had a CVA and is on Plavix. The patient takes oxcarbazepine 75 mg daily, zolpidem 10 mg q.p.m., Antivert, citalopram, Flexeril 10 mg daily. The patient has been seen by Dr. Teddy Peoples, neurosurgeon, who feels that he should try this conservative route and has also referred. The patient enjoys golfing. He goes to the golf range quite frequently. The patient reports the pain, at times, gets to an 8/10. The patient also suffers from Meniere's disease for which he has been seen by Dr. Nino. The patient's PAST MEDICAL HISTORY / SURGICAL HISTORY / REVIEW OF SYSTEMS are noted on the chart along with the MEDICATION LIST / ALLERGIES and the MRI. The report is noted on to the chart. PHYSICAL EXAMINATION: Upon physical examination, this is a pleasant, cooperative gentleman, who does not appear to be in any acute distress. VITAL SIGNS: Stable at 133/72 with a heart rate of 84. At a height of 5'10 , the patient weighs 91 kg. HEAD: Atraumatic/normocephalic. No facial asymmetry is noted. The patient is deaf in the right ear. The patient also had the CVA on the right hand side. No residual hemiparesis is noted. NECK: Cervical region tenderness and jump response are noted along the cervical facets bilaterally at the level of C6-C7 and C7-T1, which would be innervated by the median nerve of C8-T1. UPPER EXTREMITY: Motor examination is intact in the upper extremity at 5/5. NEUROLOGICALLY: The patient is intact. The patient is a heavy smoker. 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 PLAN: The patient is to apply a heat rub to his cervical spine. Education was done with regards to tobacco and concerns. The patient is to initiate a multivitamin on a regular basis. The patient will be scheduled for bilateral cervical medial branch blocks under fluoroscopy at the level of C6-C7 and C8-T1 to block the C7-T1 facet. The patient and his understand and would like to proceed. CC: Eder Prasad D.O.[facility] [id number] Evaluation note* Encounter Date Diagnosis Assessment Notes Treatment Notes Treatment Clinical Notes Jul, Cervical stenosis of spine (ICD-10 - M48.02) Jul, Spondylosis of cervical region without myelopathy or radiculopathy (ICD-10 - M47.812) This is a 67-year-old male with complaints basically of some occasional neck pain. He has no hyperreflexia, he has no weakness, and no radicular complaints. His MRI was reviewed and the report reviewed. I frankly believe it is a bit over read, there appears to be no overt compression of the cord, no cord signal changes and clinically the patient has no signs or symptoms of cord compression. My recommendation is symptomatic treatment. If he has enough neck pain I would recommend pain management, but that is not the case now. I do not believe he needs surgical intervention at this time. [facility] Other evaluation noteNo InformationN[employer] Other Evaluation noteN[employer] Other Evaluation note* Diagnosis Onset Date Resolution Status Cerebral atherosclerosis acu te Hypercholesterolemia acute Hypertension acute Lumbar spondylosis acute Major depression acute Nicotine addiction acute [facility] Work Phone: Evaluation note* Diagnosis Onset Date Resolution Status Cerebral atherosclerosis acu te Hypercholesterolemia acute Hypertension acute Lumbar spondylosis acute Major depression acute Nicotine addiction acute Dysfunction of right eustachian tube noneactive [facility] Work Phone: History general Narrative - Reported* Type Description Date Medical History stroke Medical History vertigo Medical History headache Surgical History hand surgery [facility] [place] Other History general [facility] - [facility] [place] Other History general Narrative - [facility]No[facility] [place] Other Summary Purpose Family History No Family History Records Found Advance Directives Advance Directive Response Recorded Date/ Time Advance Directives No October 30, 2023 1:40pm Chief Complaint and Reason for Visit Chief Complaint 6 month follow up Reason for Visit Cerebral atheroscler osis Hypercholesterolemia Hypertension Lumbar spondylosis Major depression Nicotine addiction Chief Complaint 6 month follow up right hand pain/swelling Reason for Visit Cerebral atheroscler osis Hypercholesterolemia Hypertension Lumbar spondylosis Major depression Nicotine addiction Dysfunction of right eustachian tube Additional Source Comments REASON FOR VISIT (unrecogniz ed section and content) referred by Dr. Prasad Cervica l SpondylosisAdditional ATBsore throat [phone] InformationBenadrylNot Feeling greatwellnessLab resultsNo Information (unrecognized sect ion and content) No Status Records Found INFORMATION SOURCE (unrecogn ized section and content) DATE CREATED AUTHOR 10/04/2022 [facility] Teams (unrecognized sec tion and content) Team Status: Active Member Role Status Dates Eder Prasad DO Primary Care Provider Active Team Status: Inactive Member Role Status Dates Eder Prasad DO Primary Care Provide r, Attending Provider Active Start: March 29, 2024 End: March 29, 2024 Team Status: Inactive Member Role Status Dates Eder Prasad DO Primary Care Provide r, Attending Provider Active Start: May 28, 2024 End: May 28, 2024 Goals (unrecognized section and content) Goals may be documented in a n alternate section FOR RECORDS PERTAINING TO PATIENTS WHO ARE OR HAVE BEEN ENROLLED IN A CHEMICAL DEPENDENCY/SUBSTANCEABUSE PROGRAM, SOME INFORMATION MAY BE OMITTED. This clinical summary was aggregated from multiple sources. Caution should be exercised in using it in the provision of clinical care. This summary normalizes information from multiple sources, and as a consequence, information in this document may materially change the coding, format and clinical context of patient data. In addition, data may be omitted in some cases. CLINICAL DECISIONS SHOULD BE BASED ON THE PRIMARY CLINICAL RECORDS. [facility]. provides no warranty or guarantee of the accuracy or completeness of information in this document.
== END 2024-06-02 09:39 | disposition home or self-care (01) ==
LOC: RAD 09:40
PROVIDERS: PCP Internal Medicine; Visit Provider Internal Medicine
DX: M79.644 Pain in right finger(s) (principal)
CPT/HCPCS: 73140

== ENCOUNTER 2024-10-14 05:53 | Outpatient (OUT) | payer MEDICARE, OTHER, SELFPAY ==
--- NOTE | 2024-10-14 05:57 | XR_ITS ---
The [place] [id number] Patient Name: DANAE CRABTREE MRN: [id number] date: 1955 Sex: M Assigned Patient Location: LAB Current Patient Location: LAB Accession/Order Number: [id number] Exam Date: 10/14/2024 06:00 Report Date: 10/14/2024 07:11 At the request of: KEKE BUSTILLO Procedure: XR knee LT 4V PROCEDURE: XR knee LT 4V COMPARISON: None. HISTORY: Left knee pain M25.562 FINDINGS: BONES:No acute fracture or dislocation. Mild degenerative changes with marginal osteophyte formation SOFT TISSUES:Negative. No visible soft tissue swelling. EFFUSION:None visible. OTHER: Negative. XR/XR knee LT 4V IMPRESSION: Mild degenerative change Electronically authenticated by: NORM QUIGLEY Date: 10/14/2024 07:11
[2024-10-14 06:45] LABS: Basophils Absolute Auto 0.1 10^3/uL (0.0-0.1); Basophils Percent Auto 0.7 % (0.2-2.0); Eosinophils Absolute Auto 0.2 10^3/uL (0.0-0.7); Eosinophils Percent Auto 1.5 % (0.9-7.0); Hematocrit 42.4 % (42.0-54.0); Hemoglobin 14.4 g/dL (14.0-18.0); Immature Granulocytes Abs Auto 0.06 10^3/uL (0.00-0.03); Immature Granulocytes Pct Auto 0.5 % (0.0-0.5); Lymphocytes Absolute Auto 3.8 10^3/uL (1.2-3.8); Lymphocytes Percent Auto 31.5 % (20.5-60.0); Mean Corpuscular Hemoglobin 31.9 pg (25.9-34.0); Mean Platelet Volume 8.9 fL (9.5-13.5); Monocytes Absolute Auto 1.1 10^3/uL (0.3-0.8); Monocytes Percent Auto 8.6 % (1.7-12.0); Neutrophils Absolute Auto 6.9 10^3/uL (1.4-6.5); Neutrophils Percent Auto 57.2 % (43.0-75.0); Platelet Count 444 10^3/uL (150-450); Red Blood Count 4.51 10^6/uL (4.70-6.10); Red Cell Distribution Width 12.3 % (11.0-15.0); White Blood Count 12.1 10^3/uL (4.0-11.0)
[2024-10-14 07:46] LABS: Alanine Aminotransferase 26 U/L (16-63); Albumin Level 3.6 g/dL (3.4-5.0); Alkaline Phosphatase 83 U/L (46-116); Anion Gap 15.1; Aspartate Amino Transferase 19 U/L (15-37); BUN Creatinine Ratio 8.5; Bilirubin Total 0.4 mg/dL (0.2-1.0); Calcium 8.4 mg/dL (8.5-10.1); Carbon Dioxide 24.7 mmol/L (21.0-32.0); Chloride 102 mmol/L (98-107); Chol HDL Ratio 5.3; Cholesterol 205 mg/dL (<=200); Estimated GFR (African America >60 (>=60 mL/min/1.73m^2); Estimated GFR (Non-African Ame >60 (>=60 mL/min/1.73m^2); Globulin 3.7 g/dL; Glucose 108 mg/dL (74-106); HDL Cholesterol 39 mg/dL (40-60); Potassium 3.8 mmol/L (3.5-5.1); Sodium 138 mmol/L (136-145); Total Protein 7.3 g/dL (6.4-8.2); Triglycerides 200 mg/dL (<=150)
[2024-10-14 07:57] LABS: Prostate Specific Antigen Scrn 0.75 ng/mL (<=4.00)
== END 2024-10-14 05:54 | disposition home or self-care (01) ==
PROVIDERS: PCP Internal Medicine; Visit Provider Internal Medicine
DX: E78.00 Pure hypercholesterolemia, unspecified (principal); I10 Essential (primary) hypertension; I67.2 Cerebral atherosclerosis; Z12.5 Encounter for screening for malignant neoplasm of prostate; M25.562 Pain in left knee
CPT/HCPCS: 36415; 73564; 80053; 80061; 85025; G0103

== ENCOUNTER 2025-05-31 12:16 | Outpatient (OUT) | payer MEDICARE, OTHER, SELFPAY ==
--- OUTSIDE RECORDS SUMMARY | 2025-05-31 12:20 | XMS_ITS | CCD ---
Author Organization [facility] Care Team Providers Care Cotton Grader Name Role Phone Teddy Peoples Unavailable OSMAR, DR GAINES Consulting Unavailable OSMAR, DR GAINES Primary Care Unavailable OSMAR, DR GAINES Attending Unavailable OSMAR, DR GAINES Admitting Unavailable Trever, DR Park Consulting Unavailable BOOGIE, SERENA Consulting Unavailable OSMAR, DR GAINES Primary Care Unavailable OSMAR, DR GAINES Attending Unavailable OSMAR, DR GAINES Admitting Unavailable GERMANKIRILL BOONE Consulting Unavailable PAY, DR KHAN Attending Unavailable PAY, DR KHAN Admitting Unavailable OSMAR, DR GAINES Primary Care Unavailable DUKES, OMID Consulting Unavailable STRATTON, ESTER Consulting Unavailable OBINNA, DR DILMA Aguilar Consulting Unavailable OSMAR, DR GAINES Primary Care Unavailable OBINNA, DR DILMA Aguilar Attending Unavailable OBINNA, DR DILMA Aguilar Admitting Unavailable NGO, [facility] Consulting Unavailable OSMAR, DR GAINES Primary Care Unavailable OBINNA, DR DILMA Aguilar Attending Unavailable OBINNA, DR DILMA Aguilar Admitting Unavailable OBINNA, DR DILMA Aguilar Consulting Unavailable OSMAR, DR GAINES Primary Care Unavailable OBINNA, DR DILMA Aguilar Attending Unavailable OBINNA, DR DILMA Aguilar Admitting Unavailable OBINNA, DR DIMLA Aguilar Consulting Unavailable OSMAR, DR GAINES Primary Care Unavailable OBINNA, DR DILMA Aguilar Attending Unavailable OBINNA, DR DILMA Aguilar Admitting Unavailable OBINNA, DR DILMA Aguilar Consulting Unavailable OSMAR, DR GAINES Primary Care Unavailable OBINNA, DR DILMA Aguilar Attending Unavailable YEBOAH, DR DILMA Aguilar Admitting Unavailable NGODAVIDSON Consulting Unavailable OSMAR, DR GAINES Consulting Unavailable OSMAR, DR GAINES Primary Care Unavailable OSMAR, DR GAINES Attending Unavailable OSMAR, DR GAINES Admitting Unavailable OSMAR, DR GAINES Consulting Unavailable OSMAR, DR GAINES Primary Care Unavailable OSMAR, DR GAINES Attending Unavailable OSMAR, DR EDER Joaquin Unavailable West, DR Park Consulting Unavailable Osmar, Eder Unavailable Allergies Allergy Classification Reported Allergen(s) Allergy Type Date of Onset Reaction(s) Facility (10 sources) HMG-CoA reductase inhibitor Drug allergy Unknown [facility] Other (5 sources) patient allergy list reviewed by nurse or physicia Propensity to adverse reactions Comment:Done [facility] Other Medications Current Medications Medication Drug Class(es) Dates Sig (Normalized) Sig (Original) amoxicillin 875 mg oral tablet (1 source) Penicillin-class Antibacterial Start: 12-31-2024 take 1 tablet by mouth twice daily Amoxicillin 875 mg tablet Active 875 MG PO Twice daily 18 04December 31, 2024 12:00am bempedoic acid 180 mg oral tablet (1 source) Start: 10-19-2024 take 1 tablet by mouth once daily Bempedoic Acid (Nexletol) 180 mg tablet Active 180 MG PO Daily October 19, 2024 1:00am citalopram 20 mg oral tablet (20 sources) Serotonin Reuptake Inhibitor Start: 06-08-2024 End: 12-07-2024 take 1 tablet by mouth once daily Citalopram 20 mg tablet Active 0 .ROUTE .COMPLEX December 07, 2024 8:34am TAKE 1 TABLET BY MOUTH EVERY DAY Start: 03-29-2024 End: 06-08-2024 take 1 tablet by mouth once daily Citalopram 20 mg tablet Discontinued 20 MG PO Daily March 29, 2024 9:16am June 08, 2024 1:05pm Start: 12-11-2023 End: 03-29-2024 take 1 tablet by mouth once daily Citalopram 20 mg tablet Discontinued 0 .ROUTE .COMPLEX December 11, 2023 9:50am March 29, 2024 9:18am TAKE 1 TABLET BY MOUTH EVERY DAY Start: 12-11-2023 End: 12-11-2023 take 1 tablet by mouth once daily Citalopram 20 mg tablet Discontinued 20 MG PO Daily December 11, 2023 1:00am December 11, 2023 9:50am clopidogrel 75 mg oral tablet (15 sources) [id number] Platelet Inhibitor Start: 06-20-2024 take 1 tablet by mouth once daily Clopidogrel 75 mg tablet Active 0 .ROUTE .COMPLEX June 20, 2024 5:49pm TAKE 1 TABLET BY MOUTH EVERY DAY Start: 03-29-2024 End: 06-20-2024 take 1 tablet by mouth once daily Clopidogrel 75 mg tablet Discontinued 75 MG PO Daily March 29, 2024 12:00am June 20, 2024 5:49pm Diclofenac (2 sources) Nonsteroidal Anti-inflammatory Drug Start: 10-19-2024 apply 2 g topically twice daily as needed for pain Diclofenac Sodium 1 % gel Active 2 GM TOPICAL Twice daily as needed for pain 100 October 19, 2024 12:42pm Start: 09-22-2024 End: 10-19-2024 Diclofenac Sodium 3 % gel Di scontinued 1 APPLIC TOPICAL Twice daily as needed for pain 100 September 22, 2024 1:00am October 19, 2024 12:44pm doxycycline hyclate 100 mg oral capsule (10 sources) Tetracycline-class Drug Start: 10-16-2022 take 1 capsule by mouth every twelve hours Doxycycline Hyclate 100 MG 1 capsule Orally Twice a day for 7 days Oct, Active ezetimibe 10 mg oral tablet (18 sources) Dietary Cholesterol Absorption Inhibitor Start: 06-07-2024 take 1 tablet by mouth once daily Ezetimibe 10 mg tablet Active 0 .ROUTE .COMPLEX 90 June 07, 2024 8:42am TAKE 1 TABLET BY MOUTH EVERY DAY Start: 03-29-2024 End: 06-07-2024 take 1 tablet by mouth once daily Ezetimibe 10 mg tablet Discontinued 10 MG PO Daily March 29, 2024 9:17am June 07, 2024 8:43am hydroCHLOROthiazide 25 mg / triamterene 37.5 mg oral capsule (14 sources) Potassium-sparing Diuretic, Thiazide Diuretic Start: 03-29-2024 take 1 capsule by mouth once daily Triamterene-Hydrochlorothiazid 37.5-25 mg capsule Active 1 CAP PO Daily March 29, 2024 12:00am Start: 07-11-2022 take 1 tablet by miah th every twenty-four hours Triamterene-HCTZ 37.5-25 MG 1 tablet in the morning Orally Once a day for 30 day(s) Jul, Active Start: 07-11-2022 take 1 tablet by miah th every twenty-four hours lisinopril 5 mg oral tablet (20 sources) Angiotensin Converting Enzyme Inhibitor Start: 09-22-2024 take 1 tablet by mouth once daily Lisinopril 5 mg tablet Active 5 MG PO Daily September 22, 2024 12:10pm Start: 09-22-2024 End: 09-22-2024 take 2 tablets by mouth once daily Lisinopril 5 mg tablet Discontinued 10 MG PO Daily 60 September 22, 2024 12:09pm September 22, 2024 12:10pm Start: 04-14-2024 End: 04-14-2024 take 5 mg by mouth twice daily Lisinopril 10 mg tablet Discontinued 5 MG PO Twice daily 30 April 14, 2024 2:38pm April 14, 2024 5:02pm Start: 04-14-2024 End: 04-14-2024 take 5 mg by mouth twice daily Lisinopril Discontinued 5 MG PO Twice daily April 14, 2024 2:38pm April 14, 2024 5:02pm Start: 03-31-2024 End: 09-22-2024 take 1 tablet by mouth once daily Lisinopril 10 mg tablet Discontinued 10 MG PO Daily 30 May 04, 2024 6:13pm September 22, 2024 12:10pm Start: 03-29-2024 End: 03-31-2024 take 1 tablet by mouth once daily Lisinopril 5 mg tablet Discontinued 5 MG PO Daily March 29, 2024 9:17am March 31, 2024 11:22am OXcarbazepine 150 mg oral tablet (20 sources) Anti-epileptic Agent Start: 12-05-2024 take 0.5 tablet by mouth once daily at bedtime Oxcarbazepine 150 mg tablet Active 0 .ROUTE .COMPLEX December 05, 2024 5:43pm TAKE 1/2 TABLET BY MOUTH EVERY DAY AT BEDTIME Start: 03-29-2024 End: 12-05-2024 Oxcarbazepine 150 mg tablet Discontinued 75 MG PO Daily at bedtime March 29, 2024 9:17am December 05, 2024 5:43pm Start: 03-29-2024 take 75 mg by mouth once daily at bedtime Oxcarbazepine Active 75 MG PO Daily at bedtime March 29, 2024 9:17am Start: 12-03-2023 End: 03-29-2024 take 0.5 tablet by mouth once daily at bedtime Oxcarbazepine 150 mg tablet Discontinued 0 .ROUTE .COMPLEX December 03, 2023 7:22pm March 29, 2024 9:18am TAKE 1/2 TABLET BY MOUTH EVERY DAY AT BEDTIME Start: 12-03-2023 End: 12-03-2023 take 0.5 tablet by mouth once daily at bedtime Oxcarbazepine 150 mg tablet Discontinued 150 MG PO Daily at bedtime December 03, 2023 1:00am December 03, 2023 7:22pm TAKE 1/2 TABLET BY MOUTH DAILY AT BEDTIME tiZANidine 4 mg oral tablet (1 source) Central alpha-2 Adrenergic Agonist Start: 12-21-2024 take 0.5-1 tablets by mouth once daily at bedtime Tizanidine 4 mg tablet Active 0 PO Daily at bedtime December 21, 2024 12:00am 1/2 - 1 tablet orally daily at bedtime; zolpidem tartrate 10 mg oral tablet (18 sources) gamma-Aminobutyric Acid-ergic Agonist Start: 09-03-2023 End: 09-12-2024 take 1 tablet by mouth once daily at bedtime as needed Zolpidem 10 mg tablet Active 10 MG PO Daily at bedtime as needed for insomnia 90 September 12, 2024 5:59pm Start: 03-17-2023 take 1 tablet by miah th once daily at bedtime Zolpidem Tartrate 10 MG TAKE 1 TABLET BY MOUTH EVERYDAY AT BEDTIME for 90 Mar, Active take 1 tablet by miah th every twenty-four hours Completed/Discontinued Medications Medication Drug Class(es) Dates Sig (Normalized) Sig (Original) cyclobenzaprine hydrochloride 10 mg oral tablet (15 sources) Muscle Relaxant Start: 06-07-2024 End: 12-21-2024 take 1 tablet by mouth once daily at bedtime Cyclobenzaprine 10 mg tablet Discontinued 0 .ROUTE .COMPLEX June 07, 2024 8:43am December 21, 2024 4:47pm TAKE 1 TABLET BY MOUTH EVERYDAY AT BEDTIME Start: 03-29-2024 End: 06-07-2024 take 1 tablet by mouth once daily at bedtime Cyclobenzaprine 10 mg tablet Discontinued 10 MG PO Daily at bedtime March 29, 2024 12:00am June 07, 2024 8:43am meclizine hydrochloride 25 mg oral tablet (6 sources) Antiemetic Start: 03-29-2024 End: 03-29-2024 take 1 tablet by mouth every six hours as needed for dizziness Meclizine 25 mg tablet Discontinued 25 MG PO Every 6 hours as needed for dizziness March 29, 2024 12:00am March 29, 2024 9:10am predniSONE 20 mg oral tablet (1 source) Start: 05-28-2024 End: 09-22-2024 take 1 tablet by mouth twice daily Prednisone 20 mg tablet Discontinued 20 MG PO Twice daily 10 5 May 28, 2024 12:00am September 22, 2024 12:10pm sildenafil 100 mg oral tablet (13 sources) Phosphodiesterase 5 Inhibitor Start: 03-29-2024 End: 03-29-2024 Sildenafil 100 mg tablet Discontinued MG PO March 29, 2024 12:00am March 29, 2024 9:18am FreeTextSi tablet as needed Orally PRN ED; Note: Source Status: Taking; Provider: Osmar Gaines ( ) Start: 03-29-2024 End: 03-29-2024 Sildenafil Discontinued MG P O March 29, 2024 12:00am March 29, 2024 9:18am [employer] tablet as needed Orally PRN ED; Note: Source Status: Taking; Provider: Osmar Gaines ( ) Problems Active Problems Problem Classification Problem Date [...] Onset: 04-05-2022 Chronic Disorders of lipid metabolism (14 sources) Familial hypercholesterolemia ; Translations: [Pure hypercholesterolemia , unspecified] Onset: 06-13-2022 Chronic Essential hypertension (17 sources) Essential (primary) hypertension; Translations: [Essential hypertension] Onset: 06-13-2022 Chronic Headache; including migraine (5 sources) Migraine with aura; Translations: [Migraine with aura, not intractable, without status migrainosus] Chronic Hyperplasia of prostate (5 sources) Benign prostatic hypertrophy without outflow obstruction; Translations: [Hypertrophy (benign) of prostate without urinary obstruction and other lower urinary tract symptoms [LUTS]] Chronic Miscellaneous mental health disorders (8 sources) Primary insomnia; Translations: [Primary insomnia] 03-15-2024 Chronic Mood disorders (17 sources) Recurrent major depression in full remission; [...] region Episodic Other aftercare (3 sources) Other termite treater (current) drug therapy; Translations: [OTH SENIOR CARE CURRENT DRUG THERAPY] Onset: 10-02-2022 Episodic Other and ill-defined cerebrovascular disease (14 sources) Cerebral atherosclerosis; Translations: [Cerebral atherosclerosis] 03-27-2024 Chronic Comment on above: Carotid [place]: < 50% - 2019 Other and ill-defined cerebrovascular disease (3 sources) Cerebral atherosclerosis; Translations: [Cerebral atherosclerosis] Chronic Other circulatory disease (1 source) Personal history of transient ischemic attack (TIA), and cerebral infarction without residual deficits Episodic Other circulatory disease (1 source) Other specified symptoms and signs involving the circulatory and respiratory systems Episodic Other connective tissue disease (1 source) Pain in finger; Translations: [Pain in right finger(s)] 06-01-2024 Episodic Other connective tissue disease (1 source) Tendinitis of finger; Translations: [Other enthesopathies, not elsewhere classified] 05-28-2024 Episodic Other ear and sense organ disorders [...] pain; Translations: [Other chronic pain] Chronic Other non-traumatic joint disorders (1 source) Pain in left knee; Translations: [Left knee pain] 09-22-2024 Episodic Other screening for suspected conditions (not mental disorders or infectious disease) (5 sources) Encounter for screening for malignant neoplasm of prostate; Translations: [Elevated prostate specific antigen [PSA]] Onset: 10-02-2022 Episodic Comment on above: PSA: 0.71 - 10/2023, 0.75 - 10/2024 Otitis media and related conditions (1 source) Unspecified Eustachian tube disorder, right ear; Translations: [Dysfunction of Eustachian tube] 03-29-2024 Episodic Peripheral and visceral atherosclerosis (12 sources) 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 and due to atherosclerosis; Translations: [Atherosclerosis of [place] arteries of extremities with intermittent claudication, bilateral [...] uncomplicated; Translations: [Nicotine dependence] Onset: 04-03-2022 Chronic Comment on above: LDCT: no suspicious nodules 05/2023, 05/2024 Past or Other Problems Problem Classification Problem Date Documented Da te Episodic/Chronic Calculus of urinary tract (1 source) Personal history of urinary calculi; Translations: [PERSONAL HISTORY OF URINARY CALCULI] Onset: 06-13-2022 Episodic Conditions associated with dizziness or vertigo (4 sources) Dizziness and giddiness; Translations: [DIZZINESS AND GIDDINESS] Onset: 06-11-2022 Episodic Other aftercare (1 source) watermelon inspector (current) use of antithrombotics/ant iplatelets; Translations: [ASSOCIATE JUVENILE COURT JUDGE ANTITHROMBOT/ANTIPL ATLETS] Onset: 06-13-2022 Episodic Residual codes; unclassified (5 sources) Sleep disorder; Translations: [Persistent disorder of initiating or maintaining sleep] Onset: 06-01-2016 Episodic Results Test Name Value Interpretation Reference Range Facility Basophils Auto (Bld) [#/Vol] on 10-14-2024 Basophils (Bld) [#/Vol] Automated basophil count 0.0-0.1 [facility] Basophils/100 WBC Auto (Bld) on 10-14-2024 Basophils/100 WBC (Bld) Automated basophil % 0.2-2.0 [facility] Cholesterol in LDL Calc [Mas s/Vol]on 10-14-2024 Cholesterol in LDL [Mass/Vol] Cholesterol in LDL [Mass/volume] in Serum or Plasma by calculation [facility] Comment on above: <100 mg/dl [id number] 0-129 mg/dl NEAR OR ABOVE [id number] mg/dl BORDERLINE [id number] mg/dl HIGH>190 mg/dl VERY HIGH Cholesterol in VLDL Calc [Ma ss/Vol]on 10-14-2024 Cholesterol in VLDL [Mass/Vol] Cholesterol in VLDL [Mass/volume] in Serum or Plasma by calculation [facility] Eosinophils/100 WBC Auto (Bl d)on 10-14-2024 Eosinophils/100 WBC (Bld) Automated eosinophil % 0.9-7.0 [facility] Erythrocyte distribution wid th Auto (RBC) [Ratio]on 10-14-2024 Erythrocyte distribution width (RBC) [Ratio] Erythrocyte distribution width [Ratio] by Automated count 11.0-15.0 [facility] Estimated glomerular filtrat ion rate (GFR) non- Americanon 10-14-2024 GFR/1.73 sq M.predicted among non-blacks MDRD (S/P/Bld) [Vol rate/Area] Estimated glomerular filtration rate (GFR) non- >=60 mL/min/1.73m 2 [facility] Globulin Calc (S) [Mass/Vol] on 10-14-2024 Globulin (S) [Mass/Vol] Serum globulin measurement by calculation (mass/volume) [facility] Hematocrit Auto (Bld) [Volum e fraction]on 10-14-2024 Hematocrit (Bld) [Volume fraction] Hematocrit [Volume Fraction] of Blood by Automated count 42.0-54.0 [facility] Hemoglobin [Mass/volume] in Bloodon 10-14-2024 Hemoglobin (Bld) [Mass/Vol] Hemoglobin [Mass/volume] in Blood 14.0-18.0 [facility] Laboratory - Chemistry and C hemistry - challengeon 10-14-2024 Albumin [Mass/Vol] 3.6 g/dL 3.4-5.[address] [facility] ALP [Catalytic activity/Vol] 83 U/L 46-116 [facility] ALT [Catalytic activity/Vol] 26 U/L 16-63 [facility] AST [Catalytic activity/Vol] 19 U/L 15-37 [facility] Bilirubin [Mass/Vol] 0.4 mg/dL 0.2-1.0 [facility] Calcium [Mass/Vol] 8.4 mg/dL Low 8.5-10.[address] [facility] Chloride [Moles/Vol] 102 mmol/L 98-107 [facility] Cholesterol [Mass/Vol] 205 mg/dL High <=200 [facility] Cholesterol in HDL [Mass/Vol] 39 mg/dL Low 40-60 [facility] Comment on above: > or =60 mg/dl - LOW CARDIOVASCULAR RISK<40 mg/dl - HIGH CARDIOVASCULAR RISK CO2 [Moles/Vol] 24.7 mmol/L 21.0-32.0 [facility] Creatinine [Mass/Vol] 1.18 mg/dL 0.70-1.30 [facility] GFR/1.73 sq M.predicted MDRD (S/P/Bld) [Vol rate/Area] mL/min/{1.73_m2} >=60 mL/min/1.73m 2 [facility] Glucose [Mass/Vol] 108 mg/dL High 74-[address] [facility] Potassium [Moles/Vol] 3.8 mmol/L 3.5-5.1 [facility] Protein [Mass/Vol] 7.3 g/dL 6.4-8.[address] [facility] Sodium [Moles/Vol] 138 mmol/L 136-[address] [facility] Triglyceride [Mass/Vol] 200 mg/dL High <=150 [facility] Urea nitrogen [Mass/Vol] 10.0 mg/dL 7.0-18.0 [facility] Urea nitrogen/Creatinine [Mass ratio] 8.5 mg/mg [facility] Laboratory - Hematology and Cell countson 10-14-2024 Immature granulocytes/100 WBC (Bld) 0.5 % 0.0-0.5 [facility] Leukocytes [#/volume] correc abad for nucleated erythrocytes in Blood by Automated counon 10-14-2024 WBC corrected for nucl RBC Auto (Bld) [#/Vol] Leukocytes [#/volume] corrected for nucleated erythrocytes in Blood by Automated coun High 4.0-11.0 [facility] Lymphocytes Auto (Bld) [#/Vo l]on 10-14-2024 Lymphocytes (Bld) [#/Vol] Lymphocytes [#/volume] in Blood by Automated count 1.2-3.8 [facility] Lymphocytes/100 WBC Auto (Bl d)on 10-14-2024 Lymphocytes/100 WBC (Bld) Lymphocytes/100 leukocytes in Blood by Automated count 20.5-60.0 [facility] MCH Auto (RBC) [Entitic mass ]on 10-14-2024 MCH (RBC) [Entitic mass] MCH [Entitic mass] by Automated count 25.9-34.0 [facility] MCHC Auto (RBC) [Mass/Vol]on 10-14-2024 MCHC (RBC) [Mass/Vol] MCHC [Mass/volume] by Automated count 29.9-35.2 [facility] MCV Auto (RBC) [Entitic vol] on 10-14-2024 MCV (RBC) [Entitic vol] MCV [Entitic volume] by Automated count 80.0-94.0 [facility] Monocytes Auto (Bld) [#/Vol] on 10-14-2024 Monocytes (Bld) [#/Vol] Automated blood monocyte count High 0.3-0.8 [facility] Monocytes/100 WBC Auto (Bld) on 10-14-2024 Monocytes/100 WBC (Bld) Automated monocyte % 1.7-12.0 [facility] Neutrophils Auto (Bld) [#/Vo l]on 10-14-2024 Neutrophils (Bld) [#/Vol] Neutrophils [#/volume] in Blood by Automated count High 1.4-6.5 [facility] Neutrophils/100 WBC Auto (Bl d)on 10-14-2024 Neutrophils/100 WBC (Bld) Automated neutrophil % 43.0-75.0 [facility] No Panel Informationon 10-14 Eosinophils # (Auto) 0.2 10 3/uL 0.0-0.7 [facility] Immature Granulocyte # (Auto) 0.06 10 3/uL High 0.00-0.03 [facility] Prostate Specific Antigen Screen 0.75 ng/mL <=4.00 [facility] Platelet mean volume Auto (B ld) [Entitic vol]on 10-14-2024 Platelet mean volume (Bld) [Entitic vol] Platelet mean volume [Entitic volume] in Blood by Automated count Low 9.5-13.5 [facility] Platelets Auto (Bld) [#/Vol] on 10-14-2024 Platelets (Bld) [#/Vol] Platelets [#/volume] in Blood by Automated count 150-450 [facility] RBC Auto (Bld) [#/Vol]on RBC (Bld) [#/Vol] Erythrocytes [#/volume] in Blood by Automated count Low 4.70-6.10 [facility] Serum or plasma albumin/glob ulin mass ratioon 10-14-2024 Albumin/Globulin [Mass ratio] Serum or plasma albumin/globulin mass ratio [facility] Serum or plasma anion gap de terminationon 10-14-2024 Anion gap [Moles/Vol] Serum or plasma anion gap determination [facility] Serum or plasma total choles terol/high density lipoprotein (HDL) cholesterol mass enzo 10-14-2024 Cholesterol.total/Cho lesterol in HDL [Mass ratio] Serum or plasma total cholesterol/high density lipoprotein (HDL) cholesterol mass rat [facility] Comment on above: 3.3 - 4.4 LOW RISK4. 4 - 7.1 AVERAGE RISK7.1 - 11.0 MODERATE RISK>11.0 HIGH RISK CBC AUTO DIFFon 09-24-2022 BASO # 0.1 103/ul Normal 0.0-0.1 [facility] Comment on above: Performed By: #### C BC ####[facility] [address] [place] [id number]. Kinsey Sarah Basophils/100 WBC (Bld) 0.6 % Normal 0.2-2.0 [facility] Comment on above: Performed By: #### C BC ####[facility] [address] [place], [place] [id number]. Kinsey Sarah EO # 0.1 103/ul Normal 0.0-0.7 [facility] Comment on above: Performed By: #### C BC ####[facility] [address] [place], [place] [address]Dr. Kinsey Sarah Eosinophils/100 WBC (Bld) 0.5 % Critically low 0.9-7.0 [facility] Comment on above: Performed By: #### C BC ####[facility] [address] [place], [place] [address]Dr. Kinsey Sarah Erythrocyte distribution width (RBC) [Ratio] 13.1 % Normal 11.0-15.0 [facility] Comment on above: Performed By: #### C BC ####[facility] [address] [place], [place] [address]Dr. Kinsey Sarah Hematocrit (Bld) [Volume fraction] 41.8 % Critically low 42.0-54.0 [facility] Comment on above: Performed By: #### C BC ####[facility] [address] [place], [place] [address]Dr. Kinsey Sarah Hemoglobin (Bld) [Mass/Vol] 14.3 g/dL Normal 14.0-18.0 [facility] Comment on above: Performed By: #### C BC ####[facility] [address] [place], [place] [address]Dr. Kinsey Sarah IG # 0.04 10e3/ul Critically high 0.00-0.03 [facility] Comment on above: Performed By: #### C BC ####[facility] [address] [place], [place] [address]Dr. Kinsey Sarah IG % 0.3 % Normal 0.0-0.5 [facility] Comment on above: Performed By: #### C BC ####[facility] [address] [place] [id number]. Kinsey Tyrel LYMPH # 3.3 103/ul Normal 1.2-3.8 [facility] Comment on above: Performed By: #### C BC ####[facility] [address] [place] [id number]. Barbieyissel Sarah Lymphocytes/100 WBC (Bld) 25.4 % Normal 20.5-60.0 [facility] Comment on above: Performed By: #### C BC ####[facility] [address] [place] [id number]. Kinsey Sarah MANUAL DIFF REQ NO Normal [facility] Comment on above: Performed By: #### C BC ####[facility] [address] [place] [id number]. Kinsey Sarah MCH (RBC) [Entitic mass] 30.8 pg Normal 25.9-34.0 [facility] Comment on above: Performed By: #### C BC ####[facility] [address] [place] [id number]. Kinsey Tyrel MCHC (RBC) [Mass/Vol] 34.2 g/dL Normal 29.9-35.2 [facility] Comment on above: Performed By: #### C BC ####[facility] [address] [place] [id number]. Kinsey Sarah MCV (RBC) [Entitic vol] 89.9 fL Normal 80.0-94.0 [facility] Comment on above: Performed By: #### C BC ####[facility] [address] [place] [id number]. Kinsey Sarah MONO # 1.0 103/ul Critically high 0.3-0.8 [facility] Comment on above: Performed By: #### C BC ####[facility] [address] [place] [id number]. Kinsey Sarah Monocytes/100 WBC (Bld) 7.6 % Normal 1.7-12.0 [facility] Comment on above: Performed By: #### C BC ####[facility] [address] [place], [place] [address]Wd. Kinsey Sarah NEUT # 8.4 103/ul Critically high 1.4-6.5 [facility] Comment on above: Performed By: #### C BC ####[facility] [address] [place], [place] [address]Vp. Kinsey Sarah Neutrophils/100 WBC (Bld) 65.6 % Normal 43.0-75.0 [facility] Comment on above: Performed By: #### C BC ####[facility] [address] [place] [id number]. Kinsey Sarah Platelet mean volume (Bld) [Entitic vol] 8.6 fL Critically low 9.5-13.5 [facility] Comment on above: Performed By: #### C BC ####[facility] [address] [place] [id number]. Kinsey Sarah PLT 441 103/ul Normal 150-450 [facility] Comment on above: Performed By: #### C BC ####[facility] [address] [place], [place] [address]Co. Kinsey Sarah RBC 4.65 106/ul Critically low 4.70-6.10 [facility] Comment on above: Performed By: #### C BC ####[facility] [address] [place] [id number]. Kinsey Sarah WBC 12.8 103/ul Critically high 4.0-11.0 [facility] Comment on above: Performed By: #### C BC ####[facility] [address] [place] [id number]. Kinsey Sarah LIPID PROFILEon 09-24-2022 CHOL-HDL RATIO NORM SEE BELOW Normal [facility] [place] [facility] Comment on above: Result Comment: 3.3 - 4.4 LOW RISK 4.4 - 7.1 AVERAGE RISK 7.1 - 11.0 MODERATE RISK >11.0 HIGH RISK Performed By: #### L IPID, ALT, BMP #### [facility] [address] [place], [place] [address] Dr. Kinsey Sarah Cholesterol [Mass/Vol] 187 mg/dL Normal <=200 [facility] Comment on above: Performed By: #### L IPID, ALT, BMP #### [facility] [address] [place] [address] [address] Kinsey Sarah Cholesterol in HDL [Mass/Vol] 38 mg/dL Critically low 40-60 [facility] Comment on above: Performed By: #### L IPID, ALT, BMP #### [facility] [address] [address] [address] Kinsey Sarah Cholesterol in LDL [Mass/Vol] 113.8 mg/dL Normal [facility] Comment on above: Performed By: #### L IPID, ALT, BMP #### [facility] [address] [place] [address] Dr. Kinsey Sarah Cholesterol.total/Cho lesterol in HDL [Mass ratio] 4.9 {ratio} Normal [facility] Comment on above: Performed By: #### L IPID, ALT, BMP #### [facility] [address] [place] [address] Dr. Kinsey Sarah HDL NORMAL > or = 60 mg/dl - LOW CARDIOVASCULAR RISK <40 mg/dl - HIGH CARDIOVASCULAR RISK Normal [facility] Comment on above: Performed By: #### L IPID, ALT, BMP #### [facility] [address] [place] [address] Dr. Kinsey Sarah LDL CALC NORMAL SEE BELOW Normal [facility] Comment on above: Result Comment: <100 mg/dl OPTIMAL 100 - 129 mg/dl NEAR OR ABOVE OPTIMAL 130 - 159 mg/dl BORDERLINE HIGH 160 - 189 mg/dl HIGH >190 mg/dl VERY HIGH Performed By: #### L IPID, ALT, BMP #### [facility] [address] [place] [address] [address] Kinsey Sarah Triglyceride [Mass/Vol] 176 mg/dL Critically high <=150 [facility] Comment on above: Performed By: #### L IPID, ALT, BMP #### [facility] [address] [address] [address] Kinsey Sarah VLDL CALC 35.2 mg/dL Normal [facility] Comment on above: Performed By: #### L IPID, ALT, BMP #### [facility] [address] [place] [address] Dr. Kinsey Sarah PROF CHEM 8 (BAS METB)on Anion gap [Moles/Vol] 13.3 mmol/L Normal [facility] Comment on above: Performed By: #### L IPID, ALT, BMP #### [facility] [address] [place] [address] Dr. Kinsey Sarah Calcium [Mass/Vol] 8.9 mg/dL Normal 8.5-10.1 [facility] Comment on above: Performed By: #### L IPID, ALT, BMP #### [facility] [address] [place] [address] Dr. Kinsey Sarah Chloride [Moles/Vol] 98 mmol/L Normal 98-107 [facility] Comment on above: Performed By: #### L IPID, ALT, BMP #### [facility] [address] [place] [address] Dr. Kinsey Sarah CO2 [Moles/Vol] 25.5 mmol/L Normal 21.0-32.0 [facility] Comment on above: Performed By: #### L IPID, ALT, BMP #### [facility] [address] [place] [address] Dr. Kinsey Sarah Creatinine [Mass/Vol] 0.98 mg/dL Normal 0.70-1.30 [facility] Comment on above: Performed By: #### L IPID, ALT, BMP #### [facility] [address] [place] [address] Dr. Kinsey Sarah EGFR-AF IRISH >60 Normal >=60 [facility] Comment on above: Performed By: #### L IPID, ALT, BMP #### [facility] [address] [place] [address] Dr. Kinsey Sarah EGFR-NON AF IRISH >60 Normal >=60 [facility] Comment on above: Performed By: #### L IPID, ALT, BMP #### [facility] [address] [place] [address] [address] Kinsey Sarah Glucose [Mass/Vol] 105 mg/dL Normal 74-106 [facility] Comment on above: Performed By: #### L IPID, ALT, BMP #### [facility] [address] [place] [address] Dr. Kinsey Sarah Potassium [Moles/Vol] 3.8 mmol/L Normal 3.5-5.1 [facility] Comment on above: Performed By: #### L IPID, ALT, BMP #### [facility] [address] [place] [address] Dr. Kinsey Sarah Sodium [Moles/Vol] 133 mmol/L Critically low 136-145 [facility] Comment on above: Performed By: #### L IPID, ALT, BMP #### [facility] [address] [place] [address] Dr. Kinsey Sarah Urea nitrogen [Mass/Vol] 16.0 mg/dL Normal 7.0-18.0 [facility] Comment on above: Performed By: #### L IPID, ALT, BMP #### [facility] [address] [place] [address] Dr. Kinsey Sarah Urea nitrogen/Creatinine [Mass ratio] 16.3 mg/mg Normal [facility] Comment on above: Performed By: #### L IPID, ALT, BMP #### [facility] [address] [place] [address] Dr. Kinsey Sarah [facility] 09-24-2022 ALT [Catalytic activity/Vol] 22 U/L Normal 16-63 [facility] Comment on above: Performed By: #### L IPID, ALT, BMP #### [facility] [address] [place] [address] Dr. Kinsey Sarah MRI CSPINE WO CONon 07-01-20 MRI CSPINE WO CON EXAMINATION: MRI CSPINE WO CON HISTORY: Radiculopathy due to cervical [...] by: NORM QUIGLEY Date: 2022-07-01 19:35 Normal [facility] XR FOREIGN BODY EYEon 2021 XR FOREIGN BODY EYE EXAM: XR FOREIGN BODY EYE HISTORY: Screening for MRI. COMPARISON: None. [...] SERENA HYMAN Date: 2022-07-01 10:39 Normal [facility] CBC AUTO DIFFon 06-11-2022 BASO # 0.1 103/ul Normal 0.0-0.1 [facility] Comment on above: Performed By: #### C BC #### [facility] [address] [address] [address] Kinsey Sarah Basophils/100 WBC (Bld) 0.5 % Normal 0.2-2.0 [facility] Comment on above: Performed By: #### C BC #### [facility] [address] [place] [address] [address] Kinsey Sarah EO # 0.1 103/ul Normal 0.0-0.7 [facility] Comment on above: Performed By: #### C BC #### [facility] [address] [place] [address] Dr. Kinsey Sarah Eosinophils/100 WBC (Bld) 0.4 % Critically low 0.9-7.0 [facility] Comment on above: Performed By: #### C BC #### [facility] [address] [place] [address] Dr. Kinsey Sarah Erythrocyte distribution width (RBC) [Ratio] 13.7 % Normal 11.0-15.0 [facility] Comment on above: Performed By: #### C BC #### [facility] [address] [place] [address] Dr. Kinsey Sarah Hematocrit (Bld) [Volume fraction] 40.4 % Critically low 42.0-54.0 [facility] Comment on above: Performed By: #### C BC #### [facility] [address] [place] [address] Dr. Kinsey Sarah Hemoglobin (Bld) [Mass/Vol] 14.0 g/dL Normal 14.0-18.0 [facility] Comment on above: Performed By: #### C BC #### [facility] [address] [place] [address] Dr. Kinsey Sarah IG # 0.08 10e3/ul Critically high 0.00-0.03 [facility] Comment on above: Performed By: #### C BC #### [facility] [address] [place] [address] Dr. Kinsey Sarah IG % 0.5 % Normal 0.0-0.5 [facility] Comment on above: Performed By: #### C BC #### [facility] [address] [place] [address] [address] Kinsey Sarah LYMPH # 2.6 103/ul Normal 1.2-3.8 [facility] Comment on above: Performed By: #### C BC #### [facility] [address] [place] [address] Dr. Kinsey Sarah Lymphocytes/100 WBC (Bld) 14.7 % Critically low 20.5-60.0 [facility] Comment on above: Performed By: #### C BC #### [facility] [address] [place] [address] Dr. Kinsey Sarah MANUAL DIFF REQ NO Normal [facility] Comment on above: Performed By: #### C BC #### [facility] [address] [place] [address] Dr. Kinsey Sarah MCH (RBC) [Entitic mass] 30.5 pg Normal 25.9-34.0 [facility] Comment on above: Performed By: #### C BC #### [facility] [address] [place] [address] Dr. Kinsey Sarah MCHC (RBC) [Mass/Vol] 34.7 g/dL Normal 29.9-35.2 [facility] Comment on above: Performed By: #### C BC #### [facility] [address] [place] [address] Dr. Kinsey Sarah MCV (RBC) [Entitic vol] 88.0 fL Normal 80.0-94.0 [facility] Comment on above: Performed By: #### C BC #### [facility] [address] [place] [address] Dr. Kinsey Sarah MONO # 0.9 103/ul Critically high 0.3-0.8 [facility] Comment on above: Performed By: #### C BC #### [facility] [address] [place] [address] Dr. Kinsey Sarah Monocytes/100 WBC (Bld) 5.2 % Normal 1.7-12.0 [facility] Comment on above: Performed By: #### C BC #### [facility] [address] [place] [address] Dr. Kinsey Sarah NEUT # 13.7 103/ul Critically high 1.4-6.5 [facility] Comment on above: Performed By: #### C BC #### [facility] [address] [place] [address] [address] Kinsey Sarah Neutrophils/100 WBC (Bld) 78.7 % Critically high 43.0-75.0 [facility] Comment on above: Performed By: #### C BC #### [facility] [address] [place] [address] [address] Kinsey Sarah Platelet mean volume (Bld) [Entitic vol] 8.6 fL Critically low 9.5-13.5 [facility] Comment on above: Performed By: #### C BC #### [facility] [address] [place] [address] [address] Kinsey Sarah PLT 444 103/ul Normal 150-450 [facility] Comment on above: Performed By: #### C BC #### [facility] [address] [place] [address] [address] Kinsey Sarah RBC 4.59 106/ul Critically low 4.70-6.10 [facility] Comment on above: Performed By: #### C BC #### [facility] [address] [place] [address] [address] Kinsey Sarah WBC 17.4 103/ul Critically high 4.0-11.0 [facility] Comment on above: Performed By: #### C BC #### [facility] [address] [place] [address] HEAD WO CONon [...] by: ESTER STRATTON Date: 2022-06-11 17:33 Normal [facility] CTA NECK WO W CONon 06-11-20 22 CTA NECK WO W CON EXAMINATION: CTA HEAD WO W CON, CTA NECK WO W [...] OMID DUKES Date: 2022-06-11 19:31 Normal [facility] PROF CHEM 8 (BAS METB)on Anion gap [Moles/Vol] 12.2 mmol/L Normal [facility] Comment on above: Performed By: #### B WALLACE, HSTROPN ####[facility] [address] [place] [address]Dr. Kinsey Sarah Calcium [Mass/Vol] 9.1 mg/dL Normal 8.5-10.1 [facility] Comment on above: Performed By: #### B WALLACE, HSTROPN ####[facility] [address] [place] [address]Dr. Kinsey Sarah Chloride [Moles/Vol] 99 mmol/L Normal 98-107 [facility] Comment on above: Performed By: #### B WALLACE, HSTROPN ####[facility] [address] [place] [address]Dr. Kinsey Sarah CO2 [Moles/Vol] 25.7 mmol/L Normal 21.0-32.0 [facility] Comment on above: Performed By: #### B WALLACE, HSTROPN ####[facility] [address] [place] [address]Dr. Barbieyissel Sarah Creatinine [Mass/Vol] 0.95 mg/dL Normal 0.70-1.30 [facility] Comment on above: Performed By: #### Tien GONSALEZ, HSTROPN ####[facility] [address] [place] [address]Dr. Kinsey Sarah EGFR-AF IRISH >60 Normal >=60 [facility] Comment on above: Performed By: #### B WALLACE, HSTROPN ####[facility] [address] [place] [id number]. Barbieysisel Sarah EGFR-NON AF IRISH >60 Normal >=60 [facility] Comment on above: Performed By: #### B WALLACE, HSTROPN ####[facility] [address] [place] [address]Dr. Kinsey Sarah Glucose [Mass/Vol] 106 mg/dL Normal 74-106 [facility] Comment on above: Performed By: #### B WALLACE, HSTROPN ####[facility] [address] [place] [address]Dr. Kinsey Sarah Potassium [Moles/Vol] 3.9 mmol/L Normal 3.5-5.1 [facility] Comment on above: Performed By: #### B WALLACE, HSTROPN ####[facility] [address] [place] [address]Dr. Kinsey Sarah Sodium [Moles/Vol] 133 mmol/L Critically low 136-145 [facility] Comment on above: Performed By: #### B WALLACE, HSTROPN ####[facility] [address] [place] [address]Dr. Kinsey Sarah Urea nitrogen [Mass/Vol] 17.0 mg/dL Normal 7.0-18.0 [facility] Comment on above: Performed By: #### B WALLACE, HSTROPN ####[facility] [address] [place] [address]Dr. Kinsey Sarah Urea nitrogen/Creatinine [Mass ratio] 17.9 mg/mg Normal [facility] Comment on above: Performed By: #### B WALLACE, HSTROPN ####[facility] [address] [place] [address]Dr. Kinsey Sarah TROPONIN, HIGH SENSITIVITYon 06-11-2022 HSTROP 3.2 pg/mL Critically low 4.0-76.1 [facility] Comment on above: Result Comment: CUT- OFF POINTS HAVE BEEN ESTABLISHED BASED ON THE FOURTH UNIVERSAL DEFINITIONS OF MYOCARDIAL INFARCTION. THE UPPER REFERENCE LIMIT (URL) OF TROPONIN, DEFINED THE 99TH PERCENTILE OF cTnI DISTRIBUTION IN A REFERENCE POPULATION, HAS BEEN CONFIRMED THE DECISION THRESHOLD FOR PA DIAGNOSIS. Performed By: #### B WALLACE, HSTROPN ####[facility] [address] [place] [address] LUNG CANCER SCREENINGon 0 [...] NORM QUIGLEY Date: 2022-04-04 07:46 Normal [facility] CBC AUTO DIFFon 04-03-2022 BASO # 0.1 103/ul Normal 0.0-0.1 [facility] Comment on above: Performed By: #### C BC ####[facility] [address] [place] [address]Dr. Kinsey Sarah Basophils/100 WBC (Bld) 0.9 % Normal 0.2-2.0 [facility] Comment on above: Performed By: #### C BC ####[facility] [address] [place] [address]DrViktoriya Sarah EO # 0.1 103/ul Normal 0.0-0.7 [facility] Comment on above: Performed By: #### C BC ####[facility] [address] [place] [id number] Sarah Eosinophils/100 WBC (Bld) 0.9 % Normal 0.9-7.0 [facility] Comment on above: Performed By: #### C BC ####[facility] [address] [place] [address]DrViktoriya Sarah Erythrocyte distribution width (RBC) [Ratio] 13.4 % Normal 11.0-15.0 [facility] Comment on above: Performed By: #### C BC ####[facility] [address] [place] [address]Dr. Kinsey Sarah Hematocrit (Bld) [Volume fraction] 43.3 % Normal 42.0-54.0 [facility] Comment on above: Performed By: #### C BC ####[facility] [address] [place] [address]Dr. Kinsey Sarah Hemoglobin (Bld) [Mass/Vol] 14.6 g/dL Normal 14.0-18.0 [facility] Comment on above: Performed By: #### C BC ####[facility] [address] [place], [place] [address]Dr. Kinsey Sarah IG # 0.02 10e3/ul Normal 0.00-0.03 [facility] Comment on above: Performed By: #### C BC ####[facility] [address] [place], [place] [address]Dr. Kinsey Sarah IG % 0.2 % Normal 0.0-0.5 [facility] Comment on above: Performed By: #### C BC ####[facility] [address] [place], [place] [address]Dr. Kinsey Sarah LYMPH # 3.2 103/ul Normal 1.2-3.8 [facility] Comment on above: Performed By: #### C BC ####[facility] [address] [place], [place] [address]Dr. Kinsey Sarah Lymphocytes/100 WBC (Bld) 30.6 % Normal 20.5-60.0 [facility] Comment on above: Performed By: #### C BC ####[facility] [address] [place], [place] [address]Dr. Kinsey Sarah MANUAL DIFF REQ NO Normal [facility] Comment on above: Performed By: #### C BC ####[facility] [address] [place] [address]Dr. Kinsey Sarah MCH (RBC) [Entitic mass] 29.8 pg Normal 25.9-34.0 [facility] Comment on above: Performed By: #### C BC ####[facility] [address] [place] [id number]. Kinsey Tyrel MCHC (RBC) [Mass/Vol] 33.7 g/dL Normal 29.9-35.2 [facility] Comment on above: Performed By: #### C BC ####[facility] [address] [place] [id number]. Kinsey Sarah MCV (RBC) [Entitic vol] 88.4 fL Normal 80.0-94.0 [facility] Comment on above: Performed By: #### C BC ####[facility] [address] [place] [address]Dr. Kinsey Sarah MONO # 0.9 103/ul Critically high 0.3-0.8 [facility] Comment on above: Performed By: #### C BC ####[facility] [address] [place], [place] [address]Dr. Kinsey Sarah Monocytes/100 WBC (Bld) 8.2 % Normal 1.7-12.0 [facility] Comment on above: Performed By: #### C BC ####[facility] [address] [place], [place] [address]Dr. Kinsey Sarah NEUT # 6.2 103/ul Normal 1.4-6.5 [facility] Comment on above: Performed By: #### C BC ####[facility] [address] [place], [place] [address]Dr. Kinsey Sarah Neutrophils/100 WBC (Bld) 59.2 % Normal 43.0-75.0 [facility] Comment on above: Performed By: #### C BC ####[facility] [address] [place], [place] [id number]. Kinsey Sarah Platelet mean volume (Bld) [Entitic vol] 8.4 fL Critically low 9.5-13.5 [facility] Comment on above: Performed By: #### C BC ####[facility] [address] [place], [place] [address]Dr. Kinsey Sarah PLT 476 103/ul Critically high 150-450 [facility] Comment on above: Performed By: #### C BC ####[facility] [address] [place], [place] [address]Pj. Kinsey Sarah RBC 4.90 106/ul Normal 4.70-6.10 [facility] Comment on above: Performed By: #### C BC ####[facility] [address] [place], [place] [address]Sd. Kinsey Sarah WBC 10.4 103/ul Normal 4.0-11.0 [facility] Comment on above: Performed By: #### C BC ####[facility] [address] [place], [place] [address]Ae. Kinsey Sarah Vital Signs Date Time Vital Sign Value Performing Clinician Facility 12-31-2024 13:44-0400 Body height 177.8 cm [facility] 12-31-2024 13:44-0400 Body mass index (BMI) [Ratio] 30.7 kg/m2 [facility] 12-31-2024 13:44-0400 Body weight 97.06 kg [facility] 12-31-2024 13:44-0400 Diastolic blood pressure 79 mm[Hg] [facility] 12-31-2024 13:44-0400 Heart rate 89 /min [facility] 12-31-2024 13:44-0400 Respiratory rate 12 /min [facility] 12-31-2024 13:44-0400 Systolic blood pressure 159 mm[Hg] [facility] 05-28-2024 13:47-0400 Body height 177.8 cm [facility] 05-28-2024 13:47-0400 Body mass index (BMI) [Ratio] 30.5 kg/m2 [facility] 05-28-2024 13:47-0400 Body weight 96.61 kg [facility] 05-28-2024 13:47-0400 Diastolic blood pressure 71 mm[Hg] [facility] 05-28-2024 13:47-0400 Heart rate 96 /min [facility] 05-28-2024 13:47-0400 Systolic blood pressure 149 mm[Hg] [facility] 03-29-2024 09:11-0400 Body height 177.8 cm [facility] 03-29-2024 09:11-0400 Body mass index (BMI) [Ratio] 30.2 kg/m2 [facility] 03-29-2024 09:11-0400 Body weight 95.7 kg [facility] 03-29-2024 09:11-0400 Diastolic blood pressure 89 mm[Hg] [facility] 03-29-2024 09:11-0400 Heart rate 80 /min [facility] 03-29-2024 09:11-0400 Respiratory rate 12 /min [facility] 03-29-2024 09:11-0400 Systolic blood pressure 181 mm[Hg] [facility] 09-26-2023 09:30-0500 Body height 177.8 cm Eder Ball Other [facility] [email or web address] Other 09-26-2023 09:30-0500 Body mass index (BMI) [Ratio] 30.27 kg/m2 Eder Ball Other [facility] [email or web address] Other 09-26-2023 09:30-0500 Body weight 95.71 kg Eder Ball Other [facility] [email or web address] Other 09-26-2023 09:30-0500 Diastolic blood pressure 88 mm[Hg] Eder Ball Other [facility] [email or web address] Other 09-26-2023 09:30-0500 Respiratory rate 12 /min Eder Ball Other [facility] [email or web address] Other 09-26-2023 09:30-0500 Systolic blood pressure 135 mm[Hg] Eder Ball Other [facility] [email or web address] Other 07-11-2022 10:20-0400 Body height 177.8 cm Teddy Peoples Other [place] Other 07-11-2022 10:20-0400 Body mass index (BMI) [Ratio] 28.69 kg/m2 Teddy Peoples Other [employer] Other 07-11-2022 10:20-0400 Body weight 90.72 kg Teddy Peoples Other [employer] Other Encounters Encounter Date Encounter Type Care Provider Facility Start: 12-31-2024 End: 12-31-2024 ambulatory [facility] Work Phone: Start: 12-31-2024 End: 12-31-2024 Patient encounter procedure [facility] Physician [facility] Work Phone: Start: 10-14-2024 Non-patient / Non-visit [facility] Physician [facility] Work Phone: Start: 09-22-2024 Patient encounter procedure [facility] Start: 05-28-2024 End: 05-28-2024 ambulatory [facility] Work Phone: Start: 05-28-2024 End: 05-28-2024 Patient encounter procedure [facility] Physician [facility] Work Phone: Start: 03-29-2024 Telephone encounter Eder CROCKETT [facility] Start: 03-29-2024 End: 03-29-2024 ambulatory [facility] Work Phone: Start: 03-29-2024 End: 03-29-2024 Patient encounter procedure [facility] Work Phone: Start: 10-13-2023 End: 10-13-2023 ambulatory Eder Prasad Other [employer] Other Start: 10-13-2023 Telephone encounter Eder Prasad [facility] Start: 09-26-2023 End: 09-26-2023 ambulatory Eder Prasad Other [employer] Other Start: 09-26-2023 Patient encounter procedure Eder Prasad [facility] Start: 06-13-2023 End: 06-13-2023 ambulatory Eder Prasad Other [employer] Other Start: 06-13-2023 Telephone encounter Eder Prasad [facility] Start: 05-27-2023 End: 05-27-2023 ambulatory Eder Prasad Other [employer] Other Start: 05-27-2023 Telephone encounter Eder Prasad [facility] Start: 04-03-2023 End: 04-03-2023 ambulatory Eder Prasad Other [employer] Other Start: 04-03-2023 Telephone encounter Eder Prasad FP [facility] Start: 03-27-2023 End: 03-27-2023 ambulatory Eder Prasad Other [employer] Other Start: 03-27-2023 Telephone encounter Eder Prasad [facility] Start: 03-11-2023 End: 03-11-2023 ambulatory Eder Prasad Other [employer] Other Start: 03-11-2023 Telephone encounter Eder Prasad [facility] Start: 10-22-2022 End: 10-22-2022 ambulatory Eder Prasad Other [facility] Other Start: 10-22-2022 Telephone encounter Eder Prasad [facility] Start: 10-16-2022 End: 10-16-2022 ambulatory Eder Prasad Other [employer] Other Start: 10-16-2022 Office outpatient vi sit 15 minutes Eder Prasad [facility] Start: 10-03-2022 End: 10-04-2022 ambulatory [facility] Facility:[facility] Start: 09-24-2022 End: 09-25-[address] EDER PRASAD Facility:[facility] Start: 09-17-2022 End: 09-17-[address] DILMA YEBOAH Facility:[facility] Start: 08-27-2022 End: 08-28-[address] DILMA YEBOAH Facility:[facility] Start: 08-13-2022 End: 08-13-[address] DILMA YEBOAH Facility:[facility] Start: 07-30-2022 End: 07-31-[address] DILMA YEBOAH Facility:[facility] Start: 07-11-2022 End: 07-11-2022 ambulatory Teddy Peoples Other [email or web address] Other Start: 07-11-2022 Office outpatient ne w 30 minutes Teddy Peoples [facility] Start: 07-01-2022 End: 07-02-[address] EDER PRASAD Facility:[facility] Start: 06-11-2022 End: 06-11-2022 ambulatory KIRILL PORTER Facility:[facility] Start: 04-26-2022 End: 06-13-[address] EDER PRASAD Facility:[facility] Start: 04-03-2022 End: 04-04-[address] EDER PRASAD Facility:[facility] Procedures Date Procedure Procedure Detail Performing Clinician Start: 09-24-[address] JEAN BAPTISTE IN [place] Comment on above: Performed By: #### [facility] ####[place] [id number] [place] [id number]. Kinsey Sarah Immunizations Immunization Date Immunization Notes [facility] Provider [facility]2022 influenza virus vaccine, split virus (incl. purified surface antigen) Eder Prasad Other [place] [facility] Other 07-02-2022 influenza virus vaccine, unspecified formulation [facility] 07-04-2021 influenza virus vaccine, split virus (incl. purified surface antigen) Eder Prasad Other [employer] Other 07-04-2021 influenza virus vaccine, unspecified formulation [facility] 08-02-2019 influenza virus vaccine, split virus (incl. purified surface antigen) Eder Prasad Other [place] [facility] Other 08-02-2019 influenza virus vaccine, unspecified formulation [facility] 07-15-2018 influenza virus vaccine, split virus (incl. purified surface antigen) Eder Prasad Other [employer] Other 07-15-2018 influenza virus vaccine, unspecified formulation [facility] 07-25-2017 tetanus and diphther ia toxoids, adsorbed, preservative free, for adult use (5 Lf of tetanus toxoid and 2 Lf of diphtheria toxoid) Eder Prasad Other [facility] 07-21-2015 tetanus and diphther ia toxoids, adsorbed, preservative free, for adult use (5 Lf of tetanus toxoid and 2 Lf of diphtheria toxoid) Eder Prasad Other [facility] Payers Date Payer Category Payer Medicare [id number] 2.1 [id number] 1959 Unknown [id number] 2.16.8 [id number] 1955 Unknown [id number] 2.16.84 [id number] 1955 Unknown [id number] 2.16.84 0.1.597764.3.579.2.593 1955 Unknown [id number] 2.16.84 0.1.102381.3.579.2.593 1955 Unknown [id number] 2.16.84 0.1.697071.3.579.2.593 1955 Unknown [id number] 2.16.84 0.1.673471.3.579.2.593 1955 Unknown [id number] 2.16.84 0.1.975871.3.579.2.593 1955 Unknown [id number] 2.16.84 0.1.146112.3.579.2.593 1955 Unknown [id number] 2.16.84 0.1.539943.3.579.2.593 1955 Unknown [id number] 2.16.84 0.1.285137.3.579.2.593 1955 Unknown [id number] 2.16.84 0.1.096728.3.579.2.593 Social History Date Type Detail Facility Sex Assigned At [facility] Other Start: 1955 Sex Assigned At Male [facility] Start: 05-28-2024 Tobacco smoking stat [facility] Smoker (finding) [facility] Start: 12-31-2024 Sex Male (finding) [facility] Clinical Notes 07-11-2022 to 09-26-2023 Note Date [...] High risk medication use (ICD-10 - Z79.899) [facility] Other 06-22-2023 Evaluation note* Encounter Date Diagnosis Assessment Notes Treatment Notes Treatment Clinical Notes Mar, Elevated PSA (ICD-10 - R97.20) [facility] Other 01-11-2023 Evaluation note* Encounter Date Diagnosis [...] antiplatelet therapy, encouraged to d/c tobacco use. [facility] Other 12-29-2022 NoteCONSULTATION CONSULTATION DATE: 10/03/2022 HISTORY [...] to see if he gets increased relief.[id number] History general Narrative - Reported* Type Description Date Medical History stroke Medical History vertigo Medical History headache Medical History Major depressive dis order, recurrent, in full remission (resolved 09/24/2022) Surgical History hand surgery Hospitalization History SEE SURGICAL HX [facility] Other [id number] NoteCONSULTATION CONSULTATION DATE: 08/27/2022 CHIEF COMPLAINT: Right [...] the level of C6-7 and C8-T1 bilaterally.[facility] [id number] NoteCONSULTATION CONSULTATION DATE: 07/30/2022 CHIEF COMPLAINT: Cervical [...] like to proceed. CC: Eder Prasad D.O.[facility] [id number] Evaluation note* Encounter Date Diagnosis Assessment Notes [...] he needs surgical intervention at this time. [facility] Other evaluation noteNo InformationNort [facility] Other [facility] Other Evaluation note* Diagnosis Onset Date Resolution Status Cerebral atherosclerosis acu te Hypercholesterolemia acute Hypertension acute Lumbar spondylosis acute Major depression acute Nicotine addiction acute [facility] Work Phone: Evaluation note* Diagnosis Onset Date Resolution Status Cerebral atherosclerosis acu te Hypercholesterolemia acute Hypertension acute Lumbar spondylosis acute Major depression acute Nicotine addiction acute Dysfunction of right eustachian tube noneactive [facility] Work Phone: Evaluation noteNo assessment information available [facility] Work Phone: History general Narrative - Reported* Type Description Date Medical History stroke Medical History vertigo Medical History headache Surgical History hand surgery [email or web address] Other History [email or web address] Other History general Narrative - [facility] [place] [email or web address] Other Summary Purpose Family History No Family [...] Nicotine addiction Dysfunction of right eustachian tube Chief Complaint Admit Date jaw swelling/not feeling well December 1:37pm Additional Source Comments REASON FOR VISIT (unrecogniz ed section and content) referred by Dr. Prasad Cervica l SpondylosisAdditional ATBsore throat [phone] InformationBenadrylNot Feeling greatwellnessLab resultsNo Information (unrecognized sect ion and content) No Status Records Found INFORMATION SOURCE (unrecogn ized section and content) DATE CREATED AUTHOR 10/04/2022 [facility] (unrecognized sec tion and content) Team Status: Active Member Role Status Shalom Prasad DO Primary Care Provider Active Team Status: Active Member Role Status Shalom Prasad DO Primary Care Provide r, Attending Provider Active Start: October 14, 2024 Team Status: Inactive Member Role Status Shalom Prasad DO Primary Care Provide r, Attending Provider Active Start: December 31, 2024 End: December 31, 2024 Team Status: Active Member Role Status Shalom Prasad DO Primary Care Provider Active Team Status: Inactive Member Role Status Shalom Prasad DO Primary Care Provide r, Attending Provider Active Start: March 29, 2024 End: March 29, 2024 Team Status: Inactive Member Role Status Shalom Prasad DO Primary Care Provide r, Attending Provider Active Start: May 28, 2024 End: May 28, 2024 Team Status: Active Member Role Status Dates Eder Prasad , Primary Care Provide r, Attending Provider Active Start: October 14, 2024 Team Status: Inactive Member Role Status Dates Eder Prasad , DO Primary Care Provide r, Attending Provider Active Start: December 31, 2024 End: December 31, 2024 Goals (unrecognized section and content) Goals [...] BE BASED ON THE PRIMARY CLINICAL RECORDS. [facility] [employer] [facility]. provides no warranty or guarantee of the accuracy or completeness of information in this document.
--- NOTE | 2025-05-31 12:34 | CT_ITS ---
The [address] [address] Patient Name: DANAE CRABTREE MRN: [id number] date: 1955 Sex: M Assigned Patient Location: CT Current Patient Location: CT Accession/Order Number: [id number] Exam Date: 05/31/2025 12:36 Report Date: 05/31/2025 13:09 At the request of: KEKE BUSTILLO DO Procedure: CT lung screening low-dose LOW-DOSE SCREENING CHEST CT WITHOUT CONTRAST COMPARISON: 05/28/2024 CLINICAL DATA: Current smoker with 60 pack year history of tobacco use. Spiral axial low-dose images were obtained through the chest without contrast. Images were reviewed using both narrow and wide window settings. This CT exam was performed using one or more following dose reduction techniques: Automated exposure control, adjustment of the mA and/or kV according to patient size, or use of iterative reconstruction technique. The heart is normal in size. No pericardial effusion is seen. There is coronary artery disease. No aortic aneurysm is noted. There is plaque at the aortic arch, descending aorta and proximal great vessels. Similar small mediastinal lymph nodes are present. Endplate spurring is visualized at the spine. There is mild scarring at the lung apices. There are airspace lucencies compatible with obstructive lung disease. No developing consolidation, pleural effusion or pneumothorax is noted. A similar punctate subpleural nodule is seen at the right upper lobe. No developing nodularity is seen. Limited cuts through the upper abdomen show no contributory findings. CT/CT lung screening low-dose IMPRESSION: OBSTRUCTIVE LUNG DISEASE. NO DEVELOPING NODULARITY. Lung RADS category 2 - benign Twelve-month low-dose CT follow-up suggested. Impression dictated by: Nerissa Ugalde M.D. 05/31/2025 1:09 PM Dictation Location: [employer] Electronically authenticated by: [id number] Y Date: 05/31/2025 13:09
== END 2025-05-31 12:17 | disposition home or self-care (01) ==
LOC: CT 12:16
PROVIDERS: PCP Internal Medicine; Visit Provider Internal Medicine
DX: J44.9 Chronic obstructive pulmonary disease, unspecified (principal); F17.210 Nicotine dependence, cigarettes, uncomplicated
CPT/HCPCS: 71271